=== PATIENT | female | born 1955 ===

== ENCOUNTER 2016-06-26 14:57 | Inpatient (IN) | payer MEDICAID ==
[~2016-06-26] VITALS: Ht 157.5 cm; Wt 78.5 kg
[2016-06-26] VITALS (8 sets, daily range): BP systolic 112–128; BP diastolic 55–84; PULSE 60–104; RESP 15–26; O2SAT 96–100
[~2016-06-26 14:57] MED LIST: ACET1TAB12 PO; CLAR10T PO; Carbidopa/Levodopa PO; FLE10 PO; METO25T PO; ZAN150T PO
--- NOTE | 2016-06-26 15:06 | ED.REPORT ---
HPI-General Illness Date of Service Jun 26, 2016 ED Provider: Ganesh Bradley DO The patient is a 60 year old female with history of hypertension and Parkinson' s on Carbidopa levodopa who was brought to the emergency department by EMS from her doctor's office for a fast heart rate. The patient has noticed increased shaking and arm soreness over the last two days. The pt has been taking three doses of Carbidopa levodopa per day, and notices that the shaking worsens directly before her next dose. Her last dose was at 14:00, and she took an aspirin at 14:15. The shaking has been accompanied by chest pressure and episodic shortness of breath with nausea that began at 10:30 today. She has no history of chest pain or cardiac disease. The pt was taking Metoprolol for her hypertension, but has been off of it for one year. Nursing Notes Stated Complaint: UNCONTROLLED SHAKING Nursing Notes Reviewed: Yes Allergies: Coded Allergies: No Known Allergies (Verified Allergy, Unknown, 06/26/16) Scheduled ([Carbidopa/Levodopa]) Unknown Dose PO TID Loratadine-Expunged Drug, Do Not Renew! (Loratadine-Expunged Drug, Do Not Renew! ) 10 Mg Tablet 10 MG PO DAILY Metoprolol Tart-Expunged Drug, Do Not Renew! (Metoprolol Tart-Expunged Drug, Do Not Renew!) 25 Mg Tablet 12.5 MG PO BID Ranitidine 150 MG Tablet (Zantac 150 MG Tablet) 150 Mg Tab 150 MG PO BID Scheduled PRN Acetaminophen/Cod-Expunged Drug, Do Not Renew (Tylenol w/Codeine #3-Expunged Drug, Do Not Re) 1 Each Tablet 0.5 TAB PO BID PRN PRN For Pain FOR PAIN Cyclobenzaprine-Expunged Drug, Do Not Renew! (Flexeril-Expunged Drug, Do Not Renew!) 10 Mg Tablet 10 MG PO HS PRN PRN For Spasm FOR MUSCLE SPASM General Time Seen by MD: 15:04 Chief Complaint Other (uncontrollable shaking) Hx Obtained From: Patient, EMS Arrived By: Ambulance Sudden in Onset?: No Onset Occurred: 2 days ago Symptom Duration: Since onset Recent Healthcare: No recent hospitalization Past Medical History Past Medical History 1. Hypertension. 2. 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 3. Gastroesophageal reflux. 4. Obesity. 5. Chronic shoulder pain, she is unsure of the diagnosis. 6. Hyperthyroidism 7. Resting tremor. She has been referred to neurology. I reviewed Dr. Zavaleta's notes from May 2013. Dr. Zavaleta considered Parkinson's and started her on a trial of carbidopa-levodopa. Past Surgical History Tubal in 1984. The patient reports what sounds to be right nephrectomy in 2004. Family History Noncontributory Smoking History Unknown if Ever Smoker Social History Other Social History: Good social support Ambulatory Status Independent Review of Systems Full Review of Systems Constitutional: Denies: Fever Respiratory: Reports: Shortness of breath Cardiovascular: Reports: Chest pain ("pressure") GI: Reports: Nausea, Denies: Abdominal pain Musculoskeletal: Reports: Extremity pain, Denies: Neck pain Skin: Denies Rash Neurologic: Reports: Shaking Complete sys rev & neg: except as marked. Physical Exam Vital Signs Vital Signs Date Time Temp Pulse Resp B/P Pulse Ox O2 Delivery O2 Flow Rate FiO2 06/26/16 17:10 85 26 121/55 100 Nasal Cannula 2 06/26/16 16:22 100 24 128/64 99 Room Air 06/26/16 15:04 36.5 104 15 125/84 97 Room Air Initial VS: Reviewed General/Constitutional: Awake, Alert Head / Eyes: Atraumatic, Normocephalic, PERRL, EOMI ENT: Atraumatic, Airway patent, Mucous membranes moist Neck: Atraumatic, Supple, Full range of motion Respiratory / Chest: Atraumatic, Breath sounds NL, Breath sounds = bilat, No respiratory distress Cardiovascular: Regular rhythm, Heart sounds NL Heart Rate / Rhythm: Positive: Tachycardia Abdomen: Atraumatic, Soft, Non-tender Back: Atraumatic, Full range of motion Upper Extremities Upper Extremity / MS: Atraumatic, Full range of motion Lower Extremity / Pelvis / MS: Atraumatic, Full range of motion Skin: Atraumatic, Color NL, No rash, Warm, Dry Neurologic: Oriented X3, Speech NL, No sensory deficits pill-rolling tremor of bilateral upper extremities Psychiatric: Affect NL, Mood NL Interpretation & Diagnostics Lab Results Interpretation Result Diagram: 06/26/16 1550 06/26/16 1550 Test 06/26/16 15:35 06/26/16 15:40 1/27/17 15:50 Hold Urine Received (Received) Urine Color Yellow (YELLOW) Urine Appearance Clear (CLEAR,HAZY) Urine pH 5.5 (5.0-8.0) Urine Specific Salome 1.010 (1.003-1.035) Urine Protein Negativemg/dL (NEG,TRACE) Urine Glucose (UA) Negativemg/dL (NEGATIVE) Urine Ketones Negativemg/dL (NEGATIVE) Urine Occult Blood Trace (NEGATIVE) Urine Nitrite Negative (NEGATIVE) Urine Bilirubin Negative (NEGATIVE) Urine Urobilinogen Normalmg/dL (NORMAL) Urine Leukocyte Esterase Negative (NEGATIVE) Urine RBC 0-2/hpf (0-2) Urine WBC 0-5/hpf (0-5) Urine Epithelial Cells Few/hpf (NONE-MOD) Urine Crystals None seen (NONE SEEN) Urine Bacteria Few/hpf (NONE-FEW) Urine Hyaline Casts None/lpf (NONE) Urine Granular Casts None seen (NONE SEEN) Urine Waxy Casts None seen (NONE SEEN) Urine Red Blood Cell Casts None seen (NONE SEEN) Urine White Blood Cell Casts None seen (NONE SEEN) Urine Mucus None seen (None Seen) Urine Trichomonas None seen (NONE SEEN) Urine Yeast None (NONE SEEN) Urinalysis Comment None Urine Culture Reflexed Not indicated White Blood Count 6.2th/mm3 (3.8-10.1) Red Blood Count 5.05mil/mm3 (3.90-5.20) Hemoglobin 14.1g/dL (12.0-15.6) Hematocrit 43.4% (35.0-46.0) Mean Corpuscular Volume 85.9fL (81-100) Mean Corpuscular Hemoglobin 27.9pg (27.0-35.0) Mean Corpuscular Hemoglobin Concent 32.5% (32.0-37.0) Red Cell Distribution Width 14.0% (12.3-15.4) Platelet Count 299bil/L (150-400) Neutrophils (%) (Auto) 56.6% (40-74) Lymphocytes (%) (Auto) 30.2% (14-46) Monocytes (%) (Auto) 7.6% (4-12) Eosinophils (%) (Auto) 4.7% (0-5) Basophils (%) (Auto) 0.6% (0-3) Prothrombin Time 9.9sec (8.1-12.5) Prothromb Time International Ratio 0.93ratio Activated Partial Thromboplast Time 23.4sec (22.8-33.0) Sodium Level 140mEq/L (134-144) Potassium Level 4.2mEq/L (3.5-5.2) Chloride Level 104mEq/L (97-108) Carbon Dioxide Level 19mmol/L (18-29) Blood Urea Nitrogen 14mg/dL (8-27) Creatinine 1.04mg/dL (0.57-1.00) Estimat Glomerular Filtration Rate 77mL/min (>59) Glucose Level 78mg/dL (60-99) Calcium Level 9.1mg/dL (8.5-10.1) Magnesium Level 2.2mg/dL (1.6-2.6) Total Bilirubin 0.4mg/dL (0.0-1.2) Aspartate Amino Transf (AST/SGOT) 25U/L (0-50) Alanine Aminotransferase (ALT/SGPT) 5U/L (0-32) Alkaline Phosphatase 82U/L (25-165) Total Creatine Kinase 54U/L (21-215) Creatine Kinase MB 1.0ng/mL (0.0-5.3) Creatine Kinase MB % 1.9% (0.0-5.0) Troponin T < 0.010ug/L (0.0-0.011) Total Protein 8.1g/dL (6.4-8.4) Albumin 4.2g/dL (3.4-5.0) Thyroid Stimulating Hormone (TSH) 0.141uIU/mL (0.450-4.500) Hold Falcon Top Tube Received (Received) ECG Interpretation ECG Interpretation: sinus tachycardia with a rate of [address] changes Time: 15:52 Interpreted by: ED physician ECG Interpretation: sinus tachycardia with a rate of 103 ventrical premature complex several montor strips that show monomorphic ventricular tachycardia Time: 16:01 Interpreted by: ED physician X-Ray Chest Interpretation Chest Xray Interpretation: IMPRESSION: No acute process. Dictated by: Collette Pantoja M.D. on 06/26/2016 at 17:13 Approved by: Collette Pantoja M.D. 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 Zavaleta presents with worsening tremor over the past couple of days. She is a difficult historian but on further questioning she notes chest pain/pressure that began around 10:30 this morning at rest and comes in episodes. While in the ER she had multiple recorded episodes of nonsustained monomorphic ventricular tachycardia with symptoms consistent with this diagnosis including nausea, chest pressure, and feeling very unwell which we witnessed. Initially we were concerned that the monitor was only picking up her tremor and that this was not true ventricular tachycardia. Her rate when this occurred was 240-250, and she had all symptoms consistent with this. Initial troponin negative. She was given Ativan in addition to an extra dose of levodopa/carbidopa which she took at 2:00 just prior to arrival here. Patient tells me that she was on metoprolol in the past but this was discontinued about 2 years ago. Cardiology was consulted and Dr. Huang recommended using metoprolol rather than amiodarone given the side effect profile. He also recommended an echocardiogram and a stress test tomorrow, and would be happy to see the patient After her dose of Lopressor her episodes of ventricular tachycardia subsided. Patient had no electrolyte abnormalities but remains hyperthyroid despite the methimazole. We will monitor her in the [facility] given the acuity of her diagnosis and the close monitoring that is required. This was discussed with the hospitalist. Source of Hx: Old records, EMS Time of Eval: 15:28 Re-Evaluation/Progress Note: Pt rechecked, who is stable. Physical exam is performed and additional history is obtained. Time of Eval: 15:46 Re-Evaluation/Progress Note: Pt rechecked, whose nuclear monitoring technician indicates possible ventricular tachycardia. She is informed of the need for EKG and additional testing. Time of Eval: 15:53 Re-Evaluation/Progress Note: Pt rechecked and informed of medication options. Time of Eval: 16:24 Re-Evaluation/Progress Note: Code blue called. Pt rechecked, who is in ventricular tachycardia. She feels nauseated, short of breath, and chest pressure during these episodes. The need for admission is discussed. The pt understands and agrees with the plan. All questions are addressed at this time. Time of Eval: 16:31 Re-Evaluation/Progress Note: Spoke with pt's family regarding pt's case. Family is updated on pt condition and plan. Consultation #1: Referral / Consult Name: Michael Santos MD Consulted With: Cardiology Call Returned at: 15:55 Video Tape Duplicator: Agrees with eval, Agrees with plan Note: Consulted with Dr. Santos, cardiology, regarding pt's case. Dr. Santos recommends 5 mg Lopressor. Consultation #2: Referral / Consult Name: Afshan Adamson MD Consulted With: Hospitalist Call Returned at: 17:04 Video Tape Duplicator: Agrees with eval, Agrees with plan, Accepts admit Note: Spoke with Dr. Adamson, hospitalist, regarding pt's case. Dr. Adamson agrees with the evaluation and agrees to admit the pt. Counseled Regarding: Diagnosis, Lab results, Need for admission Discharge & Departure Primary Impression: Ventricular tachycardia Additional Impressions: Hyperthyroidism Chest pain Chest pain type: unspecified Qualified Code: R07.9 - Chest pain, unspecified Tremor Disposition: ADMITTED TO HOSPITAL Discharge Condition All VS Reviewed: Yes Condition: Stable Referrals: Scott Kemp MD (PCP) Crit Care Except Billable Proc Time Spent: 30-74 minutes Services Performed: Patient management by me, Time spent at bedside, Reviewing test results, Reviewing imaging, Discussing patient care, Documentation in record, Time with fam/surrogate Critical Care Notes: Patient required my undivided attention to treat and evaluate her condition Scribe Attestation Portions of this note were transcribed by Chrissy Ang. Dr. Kirk Gibbons personally performed the history, physical exam and medical decision-making; I reviewed and confirmed the accuracy of the information in the transcribed note. Signed by: Hiro Pierce, 06/26/2016 and 15:06. Portions of this note were transcribed by Chidi Liu I, Dr. Andelin personally performed the history, physical exam and medical decision-making; I reviewed and confirmed the accuracy of the information in the transcribed note. Signed by: Hiro Calle, 06/26/16 and 17:22. copies to: Scott Kemp MD, Gary R DO Jun 26, 2016 15:06 Chrissy Ang Jun 26, 2016 15:11 CHIDI LIU Jun 26, 2016 15:39
[2016-06-26] MEDS ORDERED: LORazepam 1 mg Tablet PO ONE (15:15)
[2016-06-26] MEDS ORDERED: 0.9% Sodium Chloride 1,000 ML IV ONE ×2 (15:34→16:36)
[2016-06-26] MEDS ORDERED: Amiodarone 150 mg/100 mL D5W 150 MG in IV Premix 1 EACH IV ONE (15:55)
[2016-06-26] MEDS ORDERED: Nitroglycerin 2% 1 Gm Ointment TOPICAL SCH (15:55)
[2016-06-26 15:57] LABS: APPEARANCE,URINE CLEAR (CLEAR,HAZY); COLOR,URINE YELLOW (YELLOW); OCCULT BLOOD,URINE TRACE (NEGATIVE); PH,URINE 5.5 (5.0-8.0); UROBILINOGEN,URINE NORMAL (NORMAL)
[2016-06-26] MEDS ORDERED: MeTOProlol 1 mg/mL 5 mL Inj IVPUSH ONE (16:00)
[2016-06-26 16:04] LABS: BASOPHILS % (AUTO) 0.6 % (0-3); EOSINOPHILS % (AUTO) 4.7 % (0-5); MONOCYTES % (AUTO) 7.6 % (4-12); Mean Corpuscular Hemoglobin 27.9 pg (27.0-35.0); Mean Corpuscular Volume 85.9 fL (81-100); NEUTROPHILS % (AUTO) 56.6 % (40-74); Platelet Count 299 bil/L (150-400)
[2016-06-26 16:19] LABS: INR 0.93 ratio
[2016-06-26 16:34] LABS: TROPONIN T < 0.010 ug/L (0.0-0.011)
[2016-06-26 16:45] LABS: Creatine Kinase 54 U/L (21-215); Magnesium 2.2 mg/dL (1.6-2.6)
--- NOTE | 2016-06-26 16:49 | NUR ---
spiritual care: code response emotional support to pt's nephew michael in [place]. other family expected from [place].
--- NOTE | 2016-06-26 17:15 | DRSVH ---
PROCEDURE: X-RAY CHEST ONE VIEW, PORTABLE ([id number]) INDICATIONS: chest pressure TECHNIQUE: One view of the chest was acquired. COMPARISON: Merged With [facility], , CHEST 1VW (PORTABLE), 08/15/2013, 21:04. FINDINGS: Surgical changes and devices: None. Lungs and pleura: No pleural effusions or pneumothorax. Right apical scarring. Lungs are otherwise c lear. Mediastinum: No change in right hilar prominence. Mediastinal contours otherwise appear normal. Hea rt size is normal. Bones and chest wall: No suspicious bony lesions. Overlying soft tissues appear unremarkable. IMPRESSION: No acute process. Dictated by: Collette Pantoja M.D. on 06/26/2016 at 17:13 Approved by: Collette Pantoja M.D. on 06/26/2016 at 17:14
[2016-06-26] MEDS ORDERED: Alum-Mag Hydrox-Simeth 30 mL Suspension PO PRN (17:45)
[2016-06-26] MEDS ORDERED: Ondansetron 2 mg/mL 2 mL Inj IVPUSH PRN (17:45)
[2016-06-26] MEDS ORDERED: CHOL100043 PO (17:48)
[2016-06-26] MEDS ORDERED: TIZA2CAP9 PO (17:48)
[2016-06-26] MEDS ORDERED: MULT1CAP33 PO (17:48)
[2016-06-26] MEDS ORDERED: MAGN250T29 PO (17:48)
[2016-06-26] MEDS ORDERED: LORA10CA PO (17:51)
--- NOTE | 2016-06-26 17:51 | NUR ---
Admit nurse: Pt sent to ED from MD's office. Flu shot given in March 2016, med rec completed. No allergies.
[2016-06-26] MEDS: 0.9% Sodium Chloride 1,000 ML IV SCH (20:22)
[2016-06-26] MEDS ORDERED: Polyethylene Glycol (PEG) 17 Gm Powder PO PRN (20:25)
[2016-06-26] MEDS ORDERED: Atropine 1 mg/10 mL (Code) Syringe IVPUSH PRN (20:25)
[2016-06-26] MEDS ORDERED: Senna-Docusate 8.6-50 mg Tablet PO PRN (20:25)
--- NOTE | 2016-06-26 20:59 | PCM.HPMED ---
Subjective Date of Service Jun 26, 2016 Primary Provider: Admitting Physician: Afshan Adamson MD Primary Care Physician: Zachariah Anthony MD Attending Physician: Afshan Adamson MD Admit Status: From the Emergency Department Chief Complaint: Chest pressure (and noted to have runs of V tach in ED) History of Present Illness: Patient's main concern is actually her worsening tremor, Sinemet helps but the effect wears off and for an hour before her next dose she has severe tremors. This causes aching in her arms and shoulders. Her next appointment with her neurologist is July 16 so today she saw her primary care physician to see if they could prescribe something from the tremor. She says will barely noted that her heart rate was fast and irregular. Patient was not aware of this, she did not note any palpitations. However she did note onset of chest pressure this morning around 10:30 and she says it was worse while at the primary care clinic around 2 or 3 PM. This was not accompanied by shortness of breath, nausea, or diaphoresis. She says they gave her some aspirin. She took her usual Sinemet dose around 3:15. She was sent to the emergency department and did receive nitro paste which she says made her lightheaded. However it did seem to help her chest pressure and this chest discomfort has been relieved since her admission. ED physician reports that he noted frequent runs of ventricular tachycardia. She discussed this with Dr. Santos who recommended that the patient be tried on metoprolol before going to an amiodarone drip. He plans to consult and recommended an echocardiogram and a stress test. Since arriving on the floor she has not been noted to have any further episodes of ventricular tachycardia. Review of Systems: She recently got over a cold but then was around her nieces and is again noting some nasal congestion and chest congestion for which she has been taking DayQuil and NyQuil. She does get aching in her arms and shoulders when her tremor is worse. Other than this review of systems is unremarkable. Allergies Coded Allergies: No Known Allergies (Verified Allergy, Unknown, 06/26/16) Home Medications She had been on metoprolol in the past but was discontinued due to hypotension. 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 She is on Sinemet three times and day and also mentions Tizanidine but otherwise can't list her meds. PMH Hypertension Tuberculosis in 1970 treated with 12 months of medication GERD Obesity Chronic shoulder pain with past records mentioning impingement syndrome Parkinson's Surgical History Surgery for tubal in 1984 Right nephrectomy in 2004 Family History Father had an NE at age 42, mother has a pacemaker, sister has alcoholism and seizures Social History Hx Alcohol Use: No Hx Substance Use: No Smoking Status: Light Tobacco Smoker (one cig per week), Unknown if Ever Smoker Exam Vital Signs Vital Sign - Last Date Time Temp Pulse Resp B/P Pulse Ox O2 Delivery O2 Flow Rate FiO2 06/26/16 18:28 36.7 85 20 114/74 100 Nasal Cannula 2.00 Exam General: Alert and oriented, no acute distress H EENT: Unremarkable Neck: No JVD, carotids 2+ Heart: Regular Lungs: Clear anteriorly and laterally Abdomen: Soft, non-tender Extremities: No pedal edema. She has significant tremor of both hands Lab and Diagnostics Result Diagram: 06/26/16 1550 06/26/16 1550 Assessment & Plan #1 chest pressure and paroxysmal ventricular tachycardia At the recommendation of cardiology she has been started on metoprolol and has not had further episodes of ventricular tachycardia Continue to monitor on telemetry and do serial troponins Continue Nitropaste Per emergency physician cardiology is planning to consult #2 hyperthyroidism being managed by endocrinology, patient reports the grip boss discontinued her anti-thyroid medication 2 months ago, follow- up lab testing is planned but endocrinology follow-up may need to be done sooner #3 significant bilateral hand tremor presumed to be Parkinson's For now continue her same dose of Sinemet but she does have an appointment with neurology July 16 to see if her medication can be increased Resuscitation Status: DNR/DNI:Do Not Resuscitate/Intubate Afshan Adamson MD Jun 26, 2016 20:59
[2016-06-26] MEDS: Nitroglycerin 2% 1 Gm Ointment TOPICAL SCH (22:46)
--- NOTE | 2016-06-26 23:56 | NUR ---
VITALS Pt was admitted to [facility] from the ED with non sustained V-tach, trial of Metoprolol with tele monitoring. Pt denies chest pain at this time. Vitals stable HR 88, BP 112/58, SR per tele, no pain just slight discomfort in shoulder r/t tremors. Pt independent in room, RA with no SOB noted, no other issues noted at this time.
[2016-06-27] MEDS: Sodium Chloride LOK Flush 10 mL Syringe IVFLUSH SCH ×3 (00:30→16:08)
[2016-06-27 02:43] LABS: BASOPHILS % (AUTO) 0.8 % (0-3); EOSINOPHILS % (AUTO) 5.4 % (0-5); MONOCYTES % (AUTO) 7.4 % (4-12); Mean Corpuscular Hemoglobin 28.3 pg (27.0-35.0); Mean Corpuscular Volume 86.8 fL (81-100); NEUTROPHILS % (AUTO) 49.3 % (40-74); Platelet Count 258 bil/L (150-400)
[2016-06-27 03:03] VITALS: BP 102/49; PULSE 70; RESP 16; O2SAT 97
[2016-06-27] MEDS: Nitroglycerin 2% 1 Gm Ointment TOPICAL SCH ×3 (03:05→14:44)
[2016-06-27 03:18] LABS: Creatine Kinase 35 U/L (21-215)
[2016-06-27 08:15] VITALS: BP 109/51; PULSE 83; O2SAT 96
[2016-06-27] MEDS: 0.9% Sodium Chloride 1,000 ML IV SCH (08:52)
[2016-06-27 12:03] VITALS: BP 109/61; PULSE 83; RESP 20; O2SAT 97
--- NOTE | 2016-06-27 13:02 | CONS ---
[address] [address] CONSULTATION REPORT PATIENT: KINJAL TOBIAS : 1955 MR#: [id number] ADMIT: 06/26/2016 JOB ID: [id number] DATE OF SERVICE: 06/27/2016 CARDIOLOGY CONSULTATION: REASON FOR CONSULT: For the evaluation of possible ventricular tachycardia. CHIEF COMPLAINT: Chest pain and some palpitations. PRESENT HISTORY: This 60-year-old pleasant female who has a history of parkinsonism, essential hypertension, obesity, GERD, history of tuberculosis in 1970, as well as a splenic artery aneurysm about 2.[address] abdomen done in July 2013, got admitted because of above-mentioned chief complaint. According to the patient, her main symptoms are worsening tremors. Sinemet was helping. She has a neurology appointment on July 16. She almost ran out her medications. She went to see her primary care physician to get that prescription. She had yesterday about 10:30 chest discomfort which was retrosternal pressure type which was not very intense. No significant radiation or nausea, vomiting, sweating. It lasted about 15 minutes. Rarely she feels that her heart beats fast or irregular. She told her primary care physician about those symptoms. She was sent to the ED. In the emergency department, she was being monitored. During monitoring, the patient has wide QRS rhythm. ED physician thought that it was a ventricular tachycardia. Hence patient got admitted to the hospital. At present, she is lying on bed. She is not having any active chest pain or shortness of breath or PND, orthopnea, palpitation or dizziness or syncope, or claudication, pain or fever, cough, expectoration. When she gets more tremor, she gets aching in her arms and shoulder as well. No previous history of myocardial infarction. She had a pharmacological perfusion study in July 2013. At that time, she had a normal myocardial perfusion with preserved LV function. Denies any known history of rheumatic heart disease or congenital heart disease or myocardial infarction, significant arrhythmias or DVT or pulmonary embolism. PAST MEDICAL HISTORY: 1. History of parkinsonism. 2. Essential hypertension. 3. History of tuberculosis in 1970. 4. GERD. 5. Obesity. 6. Chronic shoulder pain with history of impingement syndrome. PAST SURGICAL HISTORY: 1. History of tubal . 2. Right nephrectomy in 2004 due to cancer. 3. The patient also has abdominal hernia. 4. Denies any chemoradiation at that time. FAMILY HISTORY: The patient's father had MA at age 42. Mother has a pacemaker. SOCIAL HISTORY: Denies any tobacco abuse, alcohol abuse. REVIEW OF SYSTEMS: Ten point review of systems were obtained. They are negative except as stated above. PHYSICAL EXAMINATION: Blood pressure 114/74, heart rate 85, respiratory rate 20, oxygen saturation 100% on 2 L. HEENT: No significant anemia, jaundice. Neck: No apparent JVP or carotid bruit. Chest: No obvious crepitation or rhonchi. CVS: S1, S2 normal. No S3, S4. No significant murmur. Abdomen: Obese. I do not appreciate any pulsatile mass or hepatosplenomegaly. Extremities: Mild pedal edema. Vascular: No evidence of critical limb ischemia. 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 The patient has both upper extremities tremor. LABORATORIES: Sodium 141, potassium 4.3, BUN 13, creatinine 0.89. Normal AST, ALT, bilirubin. Troponin normal. Serial CPK normal. Total cholesterol 154, triglycerides 105, LDL 80, HDL 53. TSH 0.141 with a low T4. WBC 6.7, hemoglobin 12.2, platelets 258. I reviewed her telemetry rhythm strips from the ED. It looks like there is artifact due to underlying tremor causing impression for ventricular arrhythmia, ventricular tachycardia. EKG today at 9:38 a.m. revealed sinus rhythm without any significant ST-T changes. Narrow QRS rhythm. No wide QRS rhythm. QTc 429 msec. However, in telemetry today at about 2:52 a.m., the patient has episode of narrow QRS tachycardia, rate about 150, appears to be SVT. No obvious ventricular tachycardia seen during telemetry monitoring. X-ray chest did not reveal any acute pathology. ASSESSMENT/PLAN: ED impression of ventricular tachycardia appears to be an artifact due to underlying tremor due to underlying parkinsonism. I am not convinced with ventricular tachycardia episode. It is all because of artifact. 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 She does not have any significant QTc prolongation. Her electrolytes within normal limits. She is not significantly anemic. 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 At present she is asymptomatic. Her chest pain has some anginal components. However, in July 2013, her perfusion scan was normal. As she does not have any ischemic changes, her troponin normal, serial CPK normal, at this point of time, will recommend echocardiogram to rule out structural heart disease as well as exercise stress test for CAD diagnosis and risk stratification. For underlying SVT and mesenteric artery aneurysm, beta lia is a reasonable choice. Continue antiplatelet therapy. I will also recommend for her to be seen by vascular surgeon regarding her mesenteric artery aneurysm. Discussed the plan with the patient. If her exercise stress test turns out to be normal without any significant structural heart disease in echocardiogram, then she can be discharged home. Thanks for the cardiology consult. Total time spent today is about 75 minutes.
--- NOTE | 2016-06-27 13:55 | DRSVH ---
[facility] [address] [place] [address] Echocardiogram Report Name: KINJAL TOBIAS EStudy Date : 06/27/2016 Height: 62 in Hospital [facility] Weight: 167 lb Gender: Female BSA: 1.8 m2 : 1955 Age: 60 yrs BP: 102/49 mmHg Reason For Study: Chest pain, Tachycardia Ordering Physician: Performed By: Lula Rowe Referring Physician: Yash Kemp Interpretation Summary The left ventricle is normal in size. The ejection fraction is estimated to be 60-65%. There has been no significant change in LV EF since the previous study. The right ventricle is normal in size and function. There is mild to moderate tricuspid regurgitation. Compared to the prior echo exam, there has been an increase in TR severity. The right ventricular systolic pressure is estimated at least 39 mmHg assuming a right atrial pressure of 8 mm Hg. Procedure: A two-dimensional transthoracic echocardiogram with color flow and Doppler was performed. The study quality was technically adequate. Comparison is made with the echocardiogram of 08/16/2013. The patient was in normal sinus rhythm during the exam. Left Ventricle: The left ventricle is normal in size. Left ventricular wall thickness is at the upper limits of normal. There is no thrombus. The ejection fraction is estimated to be 60-65%. There has been no significant change since the previous study. There are no focal wall motion abnormalities. The E/E' ratio is abnormal. Right Ventricle: The right ventricle is normal in size and function. Atria: The left atrium is mildly dilated. The left atrium has mildly decreased in size since the prior echo exam. Right atrial size is normal. The interatrial septum is intact with no evidence for an atrial septal defect. There is no Doppler evidence for an interatrial shunt. Mitral Valve: There is mild mitral annular calcification. There is trace mitral regurgitation. Aortic Valve: The aortic valve is normal in structure and function. There is no aortic valve stenosis. No aortic regurgitation is present. Tricuspid Valve: The tricuspid valve leaflets are thin and pliable. There is mild to moderate tricuspid regurgitation. The right ventricular systolic pressure is estimated at least 39 mmHg assuming a right atrial pressure of 8 mm Hg. Compared to the prior echo exam, there has been an increase in TR severity. Pulmonic Valve: The pulmonic valve is normal in structure and function. There is trace pulmonic regurgitation. Great Vessels: The aortic root is normal size. The ascending aorta could not be visualized. The aortic arch is at the upper limits of normal in size. The IVC is of normal diameter and collapses less than 50% with a sniff. This suggests a right atrial pressure of 8 mm Hg. Pericardium/ Pleura There is no pericardial effusion. MMode/2D Measurements & Calculations LVIDd: 4.4 cm LA dimension: 3.8 cm RA long axis LVOT diam: 2.0 cm LVIDs: 2.7 cm Ao root diam FS: 38.7 % LA A2 area: 19.3 cm RA area EPSS: 0.32 cm LA A4 area: 23.3 cm Aortic Jxn: 2.6 cm IVSd: 1.1 cm LA length (vol) : 14.3 cm Ao Arch Diam (Prox LVPWd: 0.98 cm RA vol Trans): 3.3 cm LA vol: 64.6 ml : 36.6 ml LA vol index RA : 20.7 mm2 IVC diam: 1.5 cm LV pandey. diameter/BSA LV sys. diameter/BSA RVD1 (basal) (cm/m^2): 2.5 (cm/m^2): 1.5 Doppler Measurements & Calculations Ao V2 max MV E max dickson MV E/A: 1.1 TR max dickson : 161.0 cm/sec : 106.1 cm/sec Med Peak E' Dickson : 277.5 cm/sec Ao max PG MV A max dickson TR max PG : 10.4 mmHg : 94.4 cm/sec E/E' med: 15.5 : 30.8 mmHg Ao mean PG MV P1/2t: 49.6 msec Lat Peak E' Dickson PA V2 max : 79.2 cm/sec LVOT Max Dickson E/E' lat: 10.5 PA mean PG : 92.0 cm/sec E/e' average: 13.0 Pulm A Revs Dur PA Accel Time ALVARO(I,D): 1.8 cm : 0.12 sec sev ratio MV A dur: 0.11 sec MV dec time MV P1/2t max dickson Ao V2 mean LV V1 max PG : 0.17 sec : 111.0 cm/sec MVA(P1/2t): 4.4 cm2 Ao V2 VTI: 35.1 cm LV V1 VTI ALVARO(V,D): 1.8 cm2 : 20.2 cm PA V2 mean ALVARO indexed to BSA Pulm A Revs Dur - MV : 51.6 cm/sec (cm^2/m^2): 1.0 A Dur: 0.01 msec Reading Physician:PM
--- NOTE | 2016-06-27 15:22 | NUR ---
Social Work: Screen D: Per EMR review, pt is a 60 year old female admitted for NON-Sustained V-Tach, Hyperthyroidism. Pt is [facility] medicaid. PCP Is Zachariah Anthony MD> NOK Is Cole Kelley, Brother. Raadmit score not entered at this time. Advanced directives offered to pt. Pt lives at home in [facility], [facility]. She is I at baseline. Per cardiology consult, pt is to have an echo and stress test. Pending results, pt may be able to discharge home later today. 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 CHARLENE Jimenes
--- NOTE | 2016-06-27 18:06 | NUR ---
POC/TELE The pt had an uneventful day. Cards is following, and does not believe the pt had Vtach, rather ectopy secondary to parkinson's tremors. The POC is to do a stress test tomorrow, then DC home.
[2016-06-27 20:00] VITALS: PULSE 90
[2016-06-27 20:22] VITALS: BP 123/70; PULSE 88; RESP 20; O2SAT 98
--- NOTE | 2016-06-27 20:28 | PCM.PNMED ---
Subjective Date of Service Jun 27, 2016 Subjective No complaints of chest pain, dyspnea, nausea vomiting Exam Vital Signs Vital Sign - Last Date Time Temp Pulse Resp B/P Pulse Ox O2 Delivery O2 Flow Rate FiO2 06/27/16 12:03 37.0 83 20 109/61 97 Room Air 06/26/16 18:28 2.00 Intake and Output 06/26/16 06/26/16 06/27/16 Cumulative From/Thru 15:00 23:00 07:00 06/26/16 15:04 - 06/27/16 06:40 Intake Total 1580 ml 1580 ml Output Total 975 ml 975 ml Balance 605 ml 605 ml Intake Oral 690 ml 690 ml IV Total 890 ml 890 ml Output Urine Total 975 ml 975 ml Exam Gen.- A+ O 3 no apparent distress. Obese female lying in bed Eyes- open conjunctiva clear, pupils equal nonicteric Mouth- oral mucosa moist, no exudate ENT- ears normal, nose normal Neck- supple/trach midline CVS- RRR no murmur or gallop Lungs CTA GI- NABS/NT soft Musc- moving 4 no obvious deformity Neuro- cranial nerves II through XII intact to gross examination, nonfocal Skin- warm and dry, no rashes/lesions/wounds noted Psych- pleasant and appropriate, Lab and Diagnostics LFTs WNL, LDL 80, HDL 53 DRG normal, TSH 0.141 06/26 Result Diagram: 06/27/1621906/27/16 022 X-Rays, CTs and MRIs CXR no acute process 06/26 12-lead ECG EKG personally/concurrently reviewed by Mirna normal sinus rhythm with a rate of 73, QTC 429 ms Cardiac Echo Impressions Echo 06/27 [place] Interpretation Summary The left ventricle is normal in size. The ejection fraction is estimated to be 60-65%. There has been no significant change in LV EF since the previous study. The right ventricle is normal in size and function. There is mild to moderate tricuspid regurgitation. Compared to the prior echo exam, there has been an increase in TR severity. The right ventricular systolic pressure is estimated at least 39 mmHg assuming a right atrial pressure of 8 mm Hg. Assessment & Plan 60-year-old female came in with chest pressure 06/26 Chest pain-normal cardiac enzyme normal EKG stress Myoview pending 06/28, discontinue Nitropaste Ventricular tachycardia-felt to be artifact from Parkinson's shake by head of transport logistics Dr. Santos hyperthyroidism being managed by endocrinology, patient reports the sales host discontinued her anti-thyroid medication 2 months ago, follow- up lab testing is planned but endocrinology follow-up may need to be done sooner. Check free T4 06/28 Parkinson's-tremor seems stable patient is started to take a fourth dose of Sinemet but is worried that it may be too much I will make 3 times a day for now and 8 one when necessary dose. Prophylaxis-none no DVT no GI patient very much at baseline Disposition-DO NOT RESUSCITATE from home Meeting medically complex patient first time she is getting a Myoview tomorrow and hopefully then we will discharge her. VTE Mechanical Devices: Intermittant Pneumatic CD Resuscitation Status: DNR/DNI:Do Not Resuscitate/Intubate Mohit Bradley MD Jun 27, 2016 20:27
[2016-06-27 22:57] VITALS: BP 99/61; PULSE 91; RESP 18; O2SAT 96
[2016-06-28] MEDS: Sodium Chloride LOK Flush 10 mL Syringe IVFLUSH SCH ×2 (00:16→08:14)
[2016-06-28 02:32] VITALS: BP 97/59; PULSE 83; RESP 18; O2SAT 96
[2016-06-28 03:26] LABS: TROPONIN T 0.01 ug/L (0.0-0.011)
--- NOTE | 2016-06-28 06:14 | NUR ---
Restful Night Pt seemed to sleep well between care interventions, clustering of care done. Pt denied any pain other than some soreness in arms from tremors. This was helped w/ Sinemet. Nitro paste DC'd per MD, pt NPO after midnight and caffeine free since start of shift. Tele SR 70s-80s
--- NOTE | 2016-06-28 07:42 | PCM.PNMED ---
Subjective Date of Service Jun 28, 2016 Exam Vital Signs Vital Sign - Last Date Time Temp Pulse Resp B/P Pulse Ox O2 Delivery O2 Flow Rate FiO2 06/28/16 02:32 37.2 83 18 97/59 96 Room Air 06/26/16 18:28 2.00 Intake and Output 06/27/16 06/27/16 06/28/16 Cumulative From/Thru 15:00 23:00 07:00 06/26/16 15:04 - 06/28/16 06:38 Intake Total 620 ml 2675 ml 4875 ml Output Total 825 ml 1950 ml 3750 ml Balance -205 ml 725 ml 1125 ml Intake Oral 620 ml 875 ml 2185 ml IV Total 1800 ml 2690 ml Output Urine Total 825 ml 1950 ml 3750 ml # Bowel Movements 0 0 Exam Gen.- A+ O 3 no apparent distress. Obese female lying in bed Eyes- open conjunctiva clear, pupils equal nonicteric Mouth- oral mucosa moist, no exudate ENT- ears normal, nose normal Neck- supple/trach midline CVS- RRR no murmur or gallop Lungs CTA GI- NABS/NT soft Musc- moving 4 no obvious deformity Neuro- cranial nerves II through XII intact to gross examination, nonfocal Skin- warm and dry, no rashes/lesions/wounds noted Psych- pleasant and appropriate, Lab and Diagnostics Result Diagram: 06/27/16 0220 06/27/16 0220 X-Rays, CTs and MRIs CXR no acute process 06/26 12-lead ECG EKG personally/concurrently reviewed by Mirna normal sinus rhythm with a rate of 73, QTC 429 ms Cardiac Echo Impressions Echo 06/27 [place] Interpretation Summary The left ventricle is normal in size. The ejection fraction is estimated to be 60-65%. There has been no significant change in LV EF since the previous study. The right ventricle is normal in size and function. There is mild to moderate tricuspid regurgitation. Compared to the prior echo exam, there has been an increase in TR severity. The right ventricular systolic pressure is estimated at least 39 mmHg assuming a right atrial pressure of 8 mm Hg. Assessment & Plan 60-year-old female came in with chest pressure 06/26 Chest pain-normal cardiac enzyme normal EKG stress Myoview pending 06/28, discontinue Nitropaste Ventricular tachycardia-felt to be artifact from Parkinson's shake by rip saw operator Dr. Santos hyperthyroidism being managed by endocrinology, patient reports the lighter captain discontinued her anti-thyroid medication 2 months ago, follow- up lab testing is planned but endocrinology follow-up may need to be done sooner. Check free T4 06/28 Parkinson's-tremor seems stable patient is started to take a fourth dose of Sinemet but is worried that it may be too much I will make 3 times a day for now and 8 one when necessary dose. Prophylaxis-none no DVT no GI patient very much at baseline Disposition-DO NOT RESUSCITATE from home Meeting medically complex patient first time she is getting a Myoview tomorrow and hopefully then we will discharge her. VTE Mechanical Devices: Intermittant Pneumatic CD Resuscitation Status: DNR/DNI:Do Not Resuscitate/Intubate Mohit Bradley MD Jun 28, 2016 07:42
[2016-06-28 08:12] VITALS: BP 108/70; PULSE 85; RESP 16; O2SAT 98
[2016-06-28] MEDS: 0.9% Sodium Chloride 1,000 ML IV SCH ×2 (08:14→09:52)
[2016-06-28] MEDS ORDERED: MeTOProlol XL 25 mg ER24 Tablet PO SCH ×2 (08:30→16:30)
[2016-06-28 09:58] VITALS: PULSE 99
--- NOTE | 2016-06-28 10:40 | PCM.DIMED ---
Discharge Instructions Date of Service Jun 28, 2016 Dates of Hospitalization Jun 26, 2016 at 17:38 Discharge Diagnosis Discharge Diagnosis Chest pain, noncardiac Ventricular tachycardia actually artifact Splenic artery aneurysm Uncontrolled parkinsonism Test Results EKG, and heart tests both normal Diet Heart Healthy Activity No restrictions Patient Instructions You need to see a vascular surgeon regarding your splenic artery aneurysm Follow-up with your neurologist as previously Call your primary care provider and follow up as needed or as previously scheduled Follow-up Provider: Zachariah Anthony MD Follow-up with PCP in: Other (call, you probably do not need an appointment) Attending's Statement Apparently patient ran out of Sinemet early because she was taking extra doses because her shake was returning so I am prescribing her some to get her through to her visit with her neurologist Dr. Longo on 07/16. Also giving her metoprolol succinate 25 mg daily. Should have referral for vascular surgery for further evaluation of splenic artery aneurysm. Mohit Bradley MD Jun 28, 2016 10:40
[2016-06-28] MEDS ORDERED: METO25TA99 PO (10:44)
[2016-06-28] MEDS ORDERED: CARB1TAB14 PO (10:44)
--- NOTE | 2016-06-28 10:53 | PCM.DC.MED ---
Discharge Summary Date of Service Jun 28, 2016 Dates of Hospitalization Date of Hospital Admission Jun 26, 2016 at 17:38 Date of Discharge: Jun 28, 2016 Providers: Admitting Physician: Afshan Adamson MD Primary Care Physician: Zachariah Anthony MD Attending Physician: Afshan Adamson MD Diagnosis at Time of Discharge Diagnosis at Time of Discharge Chest pain, noncardiac Ventricular tachycardia actually artifact Splenic artery aneurysm Uncontrolled parkinsonism Consultations Cardiology Dr. Santos Procedures XRay, CTs & MRIs CXR no acute process 06/26 ECG 12 Lead EKG personally/concurrently reviewed by Mirna normal sinus rhythm with a rate of 73, QTC 429 ms Cardiac Echo Impression Echo 06/27 Tom Interpretation Summary The left ventricle is normal in size. The ejection fraction is estimated to be 60-65%. There has been no significant change in LV EF since the previous study. The right ventricle is normal in size and function. There is mild to moderate tricuspid regurgitation. Compared to the prior echo exam, there has been an increase in TR severity. The right ventricular systolic pressure is estimated at least 39 mmHg assuming a right atrial pressure of 8 mm Hg. Brief History worsening tremor, question of ventricular tachycardia noted while patient was being evaluated so she was admitted Hospital Course 60-year-old female came in with chest pressure 06/26 because she ran out of Sinemet because she was having shakes and was thought to have been having episodes of ventricular tachycardia. Splenic artery aneurysm- 2.4 x 1.7 x 1.5 cm splenic artery aneurysm is present with dense rim calcification. Noted [place] [address] scan needs follow- up. Recommend referral to vascular surgeon and/or outpatient repeat CT. Chest pain-normal cardiac enzyme normal, EKG normal sinus, echocardiogram normal, stress Myoview normal. Patient cleared by cardiology for discharge Ventricular tachycardia-felt to be artifact from Parkinson's shake by abstract maker Dr. Santos. No further events noted hyperthyroidism being managed by endocrinology, patient reports the learning disabilities teacher discontinued her anti-thyroid medication 2 months ago, follow- up lab testing is planned but endocrinology follow-up may need to be done sooner. Check free T4 normal 06/28 Parkinson's-tremor seems stable patient is started to take a fourth dose of Sinemet has follow-up with Dr. Barrera her neurologist 07/16 prescription given Prophylaxis-none no DVT no GI patient very much at baseline Disposition-DO NOT RESUSCITATE from home Patient had no events in the hospital was worked up and no abnormalities found other than splenic abscess and she is being discharged in stable improved condition.. Exam Vital Signs (Last) Date Time Temp Pulse Resp B/P Pulse Ox O2 Delivery O2 Flow Rate FiO2 06/28/16 09:58 99 06/28/16 08:12 36.7 16 108/70 98 Room Air 06/26/16 18:28 2.00 Test 06/26/16 15:35 06/26/16 15:40 06/26/16 15:50 06/27/16 02:20 Hold Urine Received (Received) Urine Color Yellow (YELLOW) Urine Appearance Clear (CLEAR,HAZY) Urine pH 5.5 (5.0-8.0) Urine Specific [place] 1.010 (1.003-1.035) Urine Protein Negativemg/dL (NEG,TRACE) Urine Glucose (UA) Negativemg/dL (NEGATIVE) Urine Ketones Negativemg/dL (NEGATIVE) Urine Occult Blood Trace (NEGATIVE) Urine Nitrite Negative (NEGATIVE) Urine Bilirubin Negative (NEGATIVE) Urine Urobilinogen Normalmg/dL (NORMAL) Urine Leukocyte Esterase Negative (NEGATIVE) Urine RBC 0-2/hpf (0-2) Urine WBC 0-5/hpf (0-5) Urine Epithelial Cells Few/hpf (NONE-MOD) Urine Crystals None seen (NONE SEEN) Urine Bacteria Few/hpf (NONE-FEW) Urine Hyaline Casts None/lpf (NONE) Urine Granular Casts None seen (NONE SEEN) Urine Waxy Casts None seen (NONE SEEN) Urine Red Blood Cell Casts None seen (NONE SEEN) Urine White Blood Cell Casts None seen (NONE SEEN) Urine Mucus None seen (None Seen) Urine Trichomonas None seen (NONE SEEN) Urine Yeast None (NONE SEEN) Urinalysis Comment None Urine Culture Reflexed Not indicated Prothrombin Time 9.9sec (8.1-12.5) Prothromb Time International Ratio 0.93ratio Activated Partial Thromboplast Time 23.4sec (22.8-33.0) Magnesium Level 2.2mg/dL (1.6-2.6) Total Bilirubin 0.4mg/dL (0.0-1.2) Aspartate Amino Transf (AST/SGOT) 25U/L (0-50) Alanine Aminotransferase (ALT/SGPT) 5U/L (0-32) Alkaline Phosphatase 82U/L (25-165) Total Protein 8.1g/dL (6.4-8.4) Albumin 4.2g/dL (3.4-5.0) Thyroid Stimulating Hormone (TSH) 0.141uIU/mL (0.450-4.500) Hold Falcon Top Tube Received (Received) White Blood Count 6.7th/mm3 (3.8-10.1) Red Blood Count 4.31mil/mm3 (3.90-5.20) Hemoglobin 12.2g/dL (12.0-15.6) Hematocrit 37.4% (35.0-46.0) Mean Corpuscular Volume 86.8fL (81-100) Mean Corpuscular Hemoglobin 28.3pg (27.0-35.0) Mean Corpuscular Hemoglobin Concent 32.6% (32.0-37.0) Red Cell Distribution Width 13.8% (12.3-15.4) Platelet Count 258bil/L (150-400) Neutrophils (%) (Auto) 49.3% (40-74) Lymphocytes (%) (Auto) 36.8% (14-46) Monocytes (%) (Auto) 7.4% (4-12) Eosinophils (%) (Auto) 5.4% (0-5) Basophils (%) (Auto) 0.8% (0-3) Sodium Level 141mEq/L (134-144) Potassium Level 4.3mEq/L (3.5-5.2) Chloride Level 109mEq/L (97-108) Carbon Dioxide Level 20mmol/L (18-29) Blood Urea Nitrogen 13mg/dL (8-27) Creatinine 0.89mg/dL (0.57-1.00) Estimat Glomerular Filtration Rate 93mL/min (>59) Glucose Level 94mg/dL (60-99) Calcium Level 8.6mg/dL (8.5-10.1) Total Creatine Kinase 35U/L (21-215) Creatine Kinase MB < 1.0ng/mL (0.0-5.3) Creatine Kinase MB % % (0.0-5.0) Triglycerides Level 105mg/dL (0-149) Cholesterol Level 154mg/dL (100-199) LDL Cholesterol, Calculated 80.000mg/dL (0-99) VLDL Cholesterol 21.000mg/dL HDL Cholesterol 53mg/dL (>39) Cholesterol/HDL Ratio 2.91 (0.0-4.4) Test 06/28/16 02:30 Troponin T 0.010ug/L (0.0-0.011) Free Thyroxine 1.10ng/dL (0.82-1.77) Discharge Medications Discharge Medications ([Carbidopa/Levodopa]) 25-100 MG PO TID (Reported) Carbidopa/Levodopa 25-100 mg (Carbidopa/Levodopa 25-100 mg) 1 Each Tablet 1 TABLET PO TID Prescribed by: DEV LANDERS MD Cholecalciferol (Vitamin D3) (Vitamin D) 1,000 Unit Tablet 1,000 UNIT PO DAILY ( Reported) Loratadine (Claritin) 10 Mg Capsule 10 MG PO DAILY (Reported) Magnesium Oxide (Magnesium) 250 Mg Tablet 250 MG PO DAILY (Reported) Metoprolol Succinate ER (Metoprolol Succinate ER) 25 Mg Tab.er.24h 25 MG PO DAILY Prescribed by: DEV LANDERS MD Multivitamin (Multivitamins) 1 Each Capsule 1 EACH PO DAILY (Reported) Ranitidine 150 MG Tablet (Zantac 150 MG Tablet) 150 Mg Tab 150 MG PO BID ( Reported) Tizanidine (Tizanidine) 2 Mg Capsule 2 MG PO HS (Reported) Followup Plan Disposition: To home Follow-up plan Call PCP, patient already has appointment with neurologist July 16, one could consider repeating the CT scan of the abdomen and pelvis to evaluate the splenic artery with contrast before referring to vascular surgery or simply referring to vascular surgery. We will leave the choice to primary care provider. Cardiology does not see a need for cardiology follow-up. Discharge Diet: Heart Healthy Discharge Activity: No restrictions Patient Instructions You need to see a vascular surgeon regarding your splenic artery aneurysm Follow-up with your neurologist as previously Call your primary care provider and follow up as needed or as previously scheduled Follow-up Provider: Zachariah Anthony MD Follow-up with PCP in: Other (call, you probably do not need an appointment) Time spent Greater than 30 minutes Attending Statement Patient clinically stable, cardiac workup unrevealing, only concern is that of splenic artery aneurysm that has not been reevaluated since 2013 which is not small in size. Would benefit from repeat scan and or referral to vascular surgery. copies to: Zachariah Anthony MD, Andris E MD Jun 28, 2016 10:53
[2016-06-28 12:41] VITALS: BP 120/73; PULSE 97; RESP 20; O2SAT 98
--- NOTE | 2016-06-28 13:24 | NUR ---
Discharge Patient ambulated off unit with RN and family in a stable condition. Both IVs D/C'd intact, tele removed, all personal belongings with patient. All continued medications discussed, new medications listed were carbidopa/levidopa and metoprolol, however patient states she already is taking both of those medications -- next due doses discussed, patient had no further questions. No follow up appointment scheduled, encouraged patient to call PCP tomorrow 06/29 for possible follow up.
--- NOTE | 2016-06-28 14:54 | PROG NOTE ---
[address] [address] PROGRESS NOTE PATIENT: KINJAL TOBIAS : 1955 MR#: [id number] ADMIT: 06/26/2016 JOB ID: [id number] DATE: 06/28/2016 SUBJECTIVE: Patient came after stress test. No active chest pain. No shortness of breath or worsening palpitation or new cardiovascular symptoms. OBJECTIVE: Blood pressure 108/70, heart rate 85, respiratory rate 16, oxygen saturation 98%. Neck: No apparent JVP. Chest: No obvious crepitation, rhonchi. CVS: S1, S2 normal. No S3, no S4. Abdomen: Obese. CHINESE INSTRUCTOR: The patient has parkinsonism features. Vascular: No evidence of critical limb ischemia. Had echocardiogram yesterday which revealed normal left ventricular and right ventricular function with LV ejection fraction 60% to 65%, mild to moderate TR. Exercise stress test did not reveal any obvious ischemia feature. No significant sustained arrhythmias. Achieved 81% of target heart rate. LABORATORY: Sodium 141, potassium 4.3, free T4 normal. Hemoglobin 12.2, platelets 258. ASSESSMENT AND PLAN: Concern for ventricular tachycardia. However, it appears to be artifact due to underlying tremors due to parkinsonism. Past has short-lived episode of SVT on telemetry. Consider continuation of metoprolol. Episode of chest pain with some anginal component. In the hospital, patient ruled out for acute myocardial infarction. On 2D echo preserved LV without any significant structural heart disease. Exercise stress test did not reveal any convincing ischemia. She had a perfusion study in July 2013. At that time also she had a normal myocardial perfusion. She had CT abdomen in July 2013. At that time patient has splenic artery aneurysm. At present, she is asymptomatic. From Cardiology perspective will recommend medical management and risk factor modification. Patient to see vascular surgeon for evaluation of splenic artery aneurysm. Discussed the plan with the patient and hospitalist team. The size of splenic artery aneurysm maximum diameter was about 2.4 cm, based on CT abdomen in July 2013. At this point of time cardiology service will sign off. Total time spent about 35 minutes.
== END 2016-06-28 13:18 | disposition home or self-care (01) | DRG 42 ==
LOC: EDBD 14:57 → EDUNIT# 14:57 → SED 14:57 → PCC 17:38
PROVIDERS: ADMIT Internal Medicine; ATTEND Internal Medicine
DX: G20 Parkinson's disease (principal); I72.8 Aneurysm of other specified arteries; Z66 Do not resuscitate

== ENCOUNTER 2017-01-29 04:16 | Inpatient (IN) | payer MEDICAID ==
[2017-01-29] VITALS (12 sets, daily range): BP systolic 73–120; BP diastolic 41–68; PULSE 69–137; RESP 18–30; O2SAT 95–99
[~2017-01-29] VITALS: Ht 157.5 cm; Wt 71.0 kg
[~2017-01-29 04:16] MED LIST changes: -ACET1TAB12 PO; +CARB1TAB14 PO; +CHOL100043 PO; -CLAR10T PO; -FLE10 PO; +LORA10CA PO; +MAGN250T29 PO; +METO-386 PO; -METO25T PO; +MULT1CAP33 PO; +TIZA2CAP9 PO
--- NOTE | 2017-01-29 04:21 | ED.REPORT ---
HPI-General Illness Date of Service Jan 29, 2017 ED Provider: Santos Golden MD A 61 year old female with a history of hypertension and resting tremor followed up by neurology is brought to the ED via EMS due to weakness. The pt was experiencing increased shaking this morning, severe enough to wake her , in addition to generalized weakness, fever, inability to speak normally and cramping pain, though she denies headache. The pt reports that she just restarted her Metoprolol. Per pt's , the pt has been taking Carbidopa- Levodopa for some time, and had a decreased appetite yesterday. He was not aware of any cough or vomiting or other suggestive symptoms. He notes a male relative as a febrile illness after exposure to a "virus", and the patient was in the same area exposed to dust in the same area. Nursing Notes Stated Complaint: GENERALIZED WEAKNESS Chief Complaint: Neuro Symptoms/ Deficits Nursing Notes Reviewed: Yes Allergies: Coded Allergies: No Known Allergies (Verified Allergy, Unknown, 01/29/17) Scheduled ([Carbidopa/Levodopa]) 25-100 MG PO TID Albuterol HFA (Proair HFA) 8.5 Gm Hfa.aer.ad 2 PUFFS INHALATION Q4H Carbidopa/Levodopa 25-100 mg (Carbidopa/Levodopa 25-100 mg) 1 Each Tablet 1 TABLET PO TID Cholecalciferol (Vitamin D3) (Vitamin D) 1,000 Unit Tablet 1,000 UNIT PO DAILY Loratadine (Claritin) 10 Mg Capsule 10 MG PO DAILY Magnesium Oxide (Magnesium) 250 Mg Tablet 250 MG PO DAILY Metoprolol Succinate ER (Metoprolol Succinate ER) 25 Mg Tab.er.24h 25 MG PO DAILY Multivitamin (Multivitamins) 1 Each Capsule 1 EACH PO DAILY Ranitidine 150 MG Tablet (Zantac 150 MG Tablet) 150 Mg Tab 150 MG PO BID Miscellaneous Medications Cetirizine HCl (All Day Allergy) 10 Mg Tab.chew 10 MG PO Fluticasone Propionate (Allergy Relief) 50 Mcg/Actuation Jolon.susp 15.8 ML NS Tizanidine (Tizanidine) 4 Mg Capsule 4 MG PO General Time Seen by MD: 04:20 Chief Complaint Weakness Hx Obtained From: Patient, EMS Arrived By: Ambulance Sudden in Onset?: No Onset Occurred: 1 - 4 hours ago Symptom Duration: Since onset Recent Healthcare: Recent doctor visit, Recent hospitalization Similar Sx Previous: No Past Medical History Past Medical History 1. Hypertension. 2. 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 3. Gastroesophageal reflux. 4. Obesity. 5. Chronic shoulder pain, she is unsure of the diagnosis. 6. Hyperthyroidism 7. Resting tremor. She has been referred to neurology. I reviewed Dr. Zavaleta's notes from May 2013. Dr. Zavaleta considered Parkinson's and started her on a trial of carbidopa-levodopa. Past Surgical History Tubal in 1984. The patient reports what sounds to be right nephrectomy in 2004. Family History Noncontributory Smoking History Light Tobacco Smoker, Unknown if Ever Smoker Social History Other Social History: Good social support Ambulatory Status Independent Review of Systems "cramping pain" decreased appetite inability to speak normally Full Review of Systems Constitutional: Reports: Fever, Weakness - generalized Respiratory: Denies: Non-productive cough, Shortness of breath Cardiovascular: Denies: Chest pain GI: Denies: Abdominal pain, Vomiting Musculoskeletal: Denies: Extremity pain, Neck pain Neurologic: Reports: Shaking, Denies: Headache Complete sys rev & neg: except as marked. Physical Exam Vital Signs Vital Signs Date Time Temp Pulse Resp B/P Pulse Ox O2 Delivery O2 Flow Rate FiO2 01/29/17 04:19 36.4 124 20 104/68 96 Room Air Initial VS: Reviewed General/Constitutional: Awake, Alert verbal but slow to respond Head / Eyes: Atraumatic, Normocephalic, PERRL, EOMI ENT: Atraumatic, Airway patent, Mucous membranes moist Neck: Atraumatic, Supple, Full range of motion Respiratory / Chest: Atraumatic, Breath sounds NL, Breath sounds = bilat, No respiratory distress Cardiovascular: Heart rate NL, Regular rhythm, Heart sounds NL Abdomen: Atraumatic, Soft, Non-tender Back: Atraumatic, Full range of motion Upper Extremities Upper Extremity / MS: Atraumatic, Full range of motion Lower Extremity / Pelvis / MS: Atraumatic, Full range of motion Skin: Atraumatic, Color NL, No rash, Warm, Dry Neurologic: Oriented X3, No sensory deficits Parkinsonian tremors moving face symmetrically shaking symmetrically Psychiatric: Affect NL, Mood NL Interpretation & Diagnostics Lab Results Interpretation Result Diagram: 01/29/1744701/29/17447 Test 01/29/17 04:48 01/29/17 05:06 White Blood Count 15.2th/mm3 (3.8-10.1) Red Blood Count 5.51mil/mm3 (3.90-5.20) Hemoglobin 15.4g/dL (12.0-15.6) Hematocrit 45.8% (35.0-46.0) Mean Corpuscular Volume 83.1fL (81-100) Mean Corpuscular Hemoglobin 27.9pg (27.0-35.0) Mean Corpuscular Hemoglobin Concent 33.6% (32.0-37.0) Red Cell Distribution Width 14.4% (12.3-15.4) Platelet Count 316bil/L (150-400) Neutrophils (%) (Auto) 89.4% (40-74) Lymphocytes (%) (Auto) 5.4% (14-46) Monocytes (%) (Auto) 4.5% (4-12) Eosinophils (%) (Auto) 0.1% (0-5) Basophils (%) (Auto) 0.1% (0-3) Prothrombin Time 10.9sec (8.1-12.5) Prothromb Time International Ratio 1.02ratio Activated Partial Thromboplast Time 22.5sec (22.8-33.0) Sodium Level 147mEq/L (134-144) Potassium Level 5.1mEq/L (3.5-5.2) Chloride Level 105mEq/L (97-108) Carbon Dioxide Level 16mmol/L (18-29) Blood Urea Nitrogen 34mg/dL (8-27) Creatinine 2.63mg/dL (0.57-1.00) Estimat Glomerular Filtration Rate 26mL/min (>59) Glucose Level 119mg/dL (60-99) Calcium Level 10.2mg/dL (8.5-10.1) Magnesium Level 2.3mg/dL (1.6-2.6) Total Bilirubin 1.3mg/dL (0.0-1.2) Aspartate Amino Transf (AST/SGOT) 95U/L (0-50) Alanine Aminotransferase (ALT/SGPT) 62U/L (0-32) Alkaline Phosphatase 97U/L (25-165) Troponin T 0.010ug/L (0.0-0.011) Pro-B-Type Natriuretic Peptide 1847pg/mL (0-287) Total Protein 9.4g/dL (6.4-8.4) Albumin 4.1g/dL (3.4-5.0) Procalcitonin 0.54ng/mL (0.00-0.08) Hold Falcon Top Tube Received (Received) Urine Color Dark yellow (YELLOW) Urine Appearance Clear (CLEAR,HAZY) Urine pH 5.5 (5.0-8.0) Urine Specific [place] 1.025 (1.003-1.035) Urine Protein Tracemg/dL (NEG,TRACE) Urine Glucose (UA) Negativemg/dL (NEGATIVE) Urine Ketones Negativemg/dL (NEGATIVE) Urine Occult Blood Negative (NEGATIVE) Urine Nitrite Negative (NEGATIVE) Urine Bilirubin Negative (NEGATIVE) Urine Urobilinogen 4.0mg/dL (NORMAL) Urine Leukocyte Esterase Negative (NEGATIVE) Urine RBC 0-2/hpf (0-2) Urine WBC 6-10/hpf (0-5) Urine Epithelial Cells Few/hpf (NONE-MOD) Urine Crystals None seen (NONE SEEN) Urine Bacteria Moderate/hpf (NONE-FEW) Urine Hyaline Casts 5/20/lpf (NONE) Urine Granular Casts None seen (NONE SEEN) Urine Waxy Casts None seen (NONE SEEN) Urine Red Blood Cell Casts None seen (NONE SEEN) Urine White Blood Cell Casts None seen (NONE SEEN) Urine Mucus Present (None Seen) Urine Trichomonas None seen (NONE SEEN) Urine Yeast None (NONE SEEN) Urinalysis Comment None Urine Culture Reflexed Indicated ECG Interpretation ECG Interpretation: sinus tachycardia with a rate of 132 normal axis prolonged QT interval movement artifact Time: 04:33 Interpreted by: ED physician X-Ray Chest Interpretation Chest Xray Interpretation: chronically enlarged right hilum left-sided infiltrates Interpretation / Wet Read by: Wet read ED physician Re-Eval/Medical Decision Med Decision/Clinical Course 61-year-old female with severe parkinsonism presents febrile shaking worse than typical with some decrease in her ability to speak. She is able to speak but seems to be confined to answering simple questions, although she does so coherently and consistently. Neurologically she appears intact apart from her grossly parkinsonian tremor. She is febrile and flushed and has a white count of 15,000. Her x-ray has a previously seen right hilar enlargement with some infiltration in the left upper lobe. Both of her apices are scarred on this finding is chronic. Urinalysis shows 6-10 white cells per rightward field on a cath specimen. She has a presumptive UTI at least. I suspect there may be some pneumonia involved as well. The gun with Rocephin and azithromycin and admitted to the medicine service. Given carbidopa levodopa here. Source of Hx: Old records Time of Eval: 05:12 Re-Evaluation/Progress Note: Pt rechecked with present. The diagnosis and plan for admission are discussed. The pt understands and agrees with the plan. All questions are addressed at this time. Consultation : Referral / Consult Name: Jaiden Cuenca MD Consulted With: Hospitalist Call Returned at: 05:57 Medical Care Evaluation Specialist: Agrees with eval, Agrees with plan, Accepts admit Note: Spoke with Dr. Cuenca, hospitalist, regarding pt's case. Dr. Cuenca agrees with the evaluation and agrees to admit the pt. Counseled Regarding: Diagnosis, Lab results, Need for admission Discharge & Departure Primary Impression: Community acquired pneumonia Additional Impressions: UTI (urinary tract infection) Urinary tract infection type: site unspecified Hematuria presence: without hematuria Qualified Code: N39.0 - Urinary tract infection, site not specified Parkinson's disease Disposition: ADMITTED TO HOSPITAL Discharge Condition All VS Reviewed: Yes Condition: Stable Referrals: Zachariah Anthony MD (PCP) Scribe Attestation Portions of this note were transcribed by Chidi Liu. I, Dr. Golden personally performed the history, physical exam and medical decision-making; I reviewed and confirmed the accuracy of the information in the transcribed note. copies to: Zachariah Anthony MD, Christopher W MD Jan 29, 2017 04:21 CHIDI LIU Jan 29, 2017 05:02
[2017-01-29 04:56] LABS: BASOPHILS % (AUTO) 0.1 % (0-3); EOSINOPHILS % (AUTO) 0.1 % (0-5); MONOCYTES % (AUTO) 4.5 % (4-12); Mean Corpuscular Hemoglobin 27.9 pg (27.0-35.0); Mean Corpuscular Volume 83.1 fL (81-100); NEUTROPHILS % (AUTO) 89.4 % (40-74); Platelet Count 316 bil/L (150-400)
[2017-01-29 05:20] LABS: INR 1.02 ratio
[2017-01-29 05:25] LABS: APPEARANCE,URINE CLEAR (CLEAR,HAZY); COLOR,URINE DARK YELLOW (YELLOW); OCCULT BLOOD,URINE NEGATIVE (NEGATIVE); PH,URINE 5.5 (5.0-8.0)
[2017-01-29 05:32] LABS: TROPONIN T 0.01 ug/L (0.0-0.011)
[2017-01-29 05:44] LABS: Magnesium 2.3 mg/dL (1.6-2.6)
[2017-01-29] MEDS ORDERED: cefTRIAXone Inj 2,000 MG in Dextrose 5% Minibag Plus 50 ML IV ONE (05:55)
[2017-01-29] MEDS ORDERED: 0.9% Sodium Chloride 1,000 ML IV ONE (05:55)
[2017-01-29] MEDS ORDERED: Azithromycin Inj 500 MG in Dextrose 5% w/Vial Mate 250 ML IV ONE (05:55)
[2017-01-29] MEDS ORDERED: ALBU8.5H2 INHALATION (06:23)
[2017-01-29] MEDS ORDERED: TIZA4CAP8 PO (06:23)
[2017-01-29] MEDS ORDERED: CETI10TA27 PO (06:23)
[2017-01-29] MEDS ORDERED: FLUT15.812 NS (06:23)
[2017-01-29] MEDS ORDERED: Ondansetron 2 mg/mL 2 mL Inj IVPUSH PRN (06:55)
[2017-01-29] MEDS ORDERED: Alum-Mag Hydrox-Simeth 30 mL Suspension PO PRN ×2 (06:55→09:05)
[2017-01-29] MEDS ORDERED: Lactated Ringer's 1,000 ML IV SCH ×2 (07:45→18:55)
[2017-01-29] MEDS ORDERED: Piperacillin-Tazo 3.375 Gm Inj 3.375 GM in Dextrose 5% Minibag Plus 50 ML IV ONE (08:50)
--- NOTE | 2017-01-29 08:51 | DRSVH ---
PROCEDURE: X-RAY CHEST ONE VIEW, PORTABLE ([id number]) INDICATIONS: WEAK TECHNIQUE: One view of the chest was acquired. COMPARISON: [facility], CT, CHEST/ABD/PELVIS W/CON (PNL), 08/16/2013, 9:38. [facility], CR, CHEST 1VW (PORTABLE), 08/15/2013, 21:04. [facility], CR, XR CHEST 1VW (PO RTABLE), 06/26/2016, 16:43. FINDINGS: Surgical changes and devices: None. Lungs and pleura: No pleural effusions or pneumothorax. Lung volumes are increased. Interstitium i s prominent and upper lobe scarring is unchanged from prior examinations. Mediastinum: Mediastinal contours appear normal. Heart size is normal. Bones and chest wall: No suspicious bony lesions. Overlying soft tissues appear unremarkable. IMPRESSION: Prominent interstitium and upper lobe scarring unchanged from the prior examination. Mil d early developing pulmonary edema cannot be excluded and clinical correlation recommended. Dictated by: Suhas MCKOY Interpreted: Deysi Martin MD on 01/29/2017 at 8:36 Approved by: Deysi Martin M.D. on 01/29/2017 at 8:49
[2017-01-29] MEDS ORDERED: Lactated Ringer's 500 ML IV ONE ×2 (08:55→16:10)
[2017-01-29] MEDS: Albuterol 2.5 mg/3 mL Inhalation Solution NEB SCH ×4 (09:02→21:02)
[2017-01-29] MEDS ORDERED: Polyethylene Glycol (PEG) 17 Gm Powder PO PRN (09:05)
[2017-01-29] MEDS ORDERED: 0.9% Sodium Chloride 250 ML ONE (10:28)
[2017-01-29] MEDS ORDERED: Albuterol-Ipratropium 3 mL Inhalation Solution NEB PRN (12:05)
[2017-01-29 13:06] LABS: BASOPHILS % (AUTO) 0.2 % (0-3); EOSINOPHILS % (AUTO) 0 % (0-5); Mean Corpuscular Hemoglobin 27.8 pg (27.0-35.0); Mean Corpuscular Volume 85.2 fL (81-100); NEUTROPHILS % (AUTO) 83.2 % (40-74); Platelet Count 198 bil/L (150-400)
--- NOTE | 2017-01-29 13:32 | PCM.HPMED ---
Subjective Date of Service Jan 29, 2017 Primary Provider: Admitting Physician: Jaiden Cuenca MD Primary Care Physician: Zachariah Anthony MD Attending Physician: Jaiden Cuenca MD Admit Status: From the Emergency Department, Admit to Red Team Chief Complaint: weakness History of Present Illness: 61 yo pleasant Female h/o of HTN, Hyperthyroidism, hx of Splenic artery aneurysm , Parkinson's with resting tremor on Sinemet, Tb that was treated in 1970, GERD , Obesity, hx of R Nephrectomy presenting to ED for weakness and increased shaking morning of admission that woke her up. Pt is poor historian, history from family and ED note below. The pt was experiencing increased shaking this morning, severe enough to wake her , in addition to generalized weakness, fever, inability to speak normally and cramping pain, though she denies headache. The pt reports that she just restarted her Metoprolol. Per pt's , the pt has been taking Carbidopa-Levodopa for some time, and had a decreased appetite yesterday. He was not aware of any cough or vomiting or other suggestive symptoms. He notes a male relative as a febrile illness after exposure to a "virus", and the patient was in the same area exposed to dust in the same area. In ED pt received single dose of Carbidopa-Levodopa. Abx- given Ceftriaxone and Azithromycin. UA- suggestive of UTI. Review of Systems: 12 point review of symptoms negative except for that in history of present illness Allergies Coded Allergies: No Known Allergies (Verified Allergy, Unknown, 01/29/17) Home Medications ([Carbidopa/Levodopa]) 25-100 MG PO TID Albuterol HFA (Proair HFA) 8.5 Gm Hfa.aer.ad 2 PUFFS INHALATION Q4H Carbidopa/Levodopa 25-100 mg (Carbidopa/Levodopa 25-100 mg) 1 Each Tablet 1 TABLET PO TID Cholecalciferol (Vitamin D3) (Vitamin D) 1,000 Unit Tablet 1,000 UNIT PO DAILY Loratadine (Claritin) 10 Mg Capsule 10 MG PO DAILY Magnesium Oxide (Magnesium) 250 Mg Tablet 250 MG PO DAILY Metoprolol Succinate ER (Metoprolol Succinate ER) 25 Mg Tab.er.24h 25 MG PO DAILY Multivitamin (Multivitamins) 1 Each Capsule 1 EACH PO DAILY Ranitidine 150 MG Tablet (Zantac 150 MG Tablet) 150 Mg Tab 150 MG PO BID Miscellaneous Medications Cetirizine HCl (All Day Allergy) 10 Mg Tab.chew 10 MG PO Fluticasone Propionate (Allergy Relief) 50 Mcg/Actuation [place].susp 15.8 ML NS Tizanidine (Tizanidine) 4 Mg Capsule 4 MG PO PMH Hypertension Tuberculosis in 1970 treated with 12 months of medication GERD Obesity Chronic shoulder pain with past records mentioning impingement syndrome Parkinson's Hyperthyroidism, hx of Splenic artery aneurysm Surgical History Surgery for tubal in 1984 Right nephrectomy in 2004 Family History Father had an MN at age 42, mother has a pacemaker, sister has alcoholism and seizures Social History Hx Alcohol Use: No Hx Substance Use: No Smoking Status: Light Tobacco Smoker, Unknown if Ever Smoker Exam Vital Signs Vital Sign - Last Date Time Temp Pulse Resp B/P Pulse Ox O2 Delivery O2 Flow Rate FiO2 01/29/17 11:11 36.9 69 20 120/47 99 Room Air Exam Gen: NAD, Awake and alert, not answering questions. +tremor b/l UE. HEENT: NCAT, PERRLA, EOMI, MMM, sclera anicteric. Neck: Soft, supple, no thyromegaly/JVD/LAD. Resp: CTAB, no R/R/W. CV: S1 S2, RRR, No M/R/G Abd: Soft, (+) BS, NT/ND, no guarding/rebound/organomegaly. Ext: +PP, No edema. Skin: warm/dry/intact Neuro/Psych: Mostly Non-verbal. +significant tremor of both hands Lab and Diagnostics Result Diagram: 01/29/17 1301 01/29/17 0448 Microbiology 01/29/17- CXR- Prominent interstitium and upper lobe scarring unchanged from the prior examination. Mild early developing pulmonary edema cannot be excluded and clinical correlation recommended. Assessment & Plan 61 yo pleasant Female h/o of HTN, Hyperthyroidism, hx of Splenic artery aneurysm , Parkinson's with resting tremor on Sinemet, Tb that was treated in 1970, GERD , Obesity, hx of R Nephrectomy presenting to ED for weakness and increased shaking morning of admission. Sepsis- poa, active- source likely PNA. UTI possible however UA- LE/Nit- neg. Bacteria- mod. WBC- 15.2 on admit, downtrending. Fever- 38.4. HR- 124. - 01/29/17- CXR- Prominent interstitium and upper lobe scarring unchanged from the prior examination. Mild early developing pulmonary edema cannot be excluded and clinical correlation recommended. - ED gave Ceftriaxone/Azithromycin. Pt started on Zosyn 01/29. - Blood, Sputum cx ordered. Respiratory Viral Panel, Strep Pn ag- neg. Legionella ag- pending. - Consider CT Chest to evaluate upper lobe scarring, infiltrates. Weakness- poa, active- - Unclear etiology. Likely related to above. Pt does appear dehydrated on exam. Difficulty with words per family. CT Head- no evidence of CVA. - Fluid resuscitate w/ IVF. - Dr. Zavaleta is pt's outpatient neurologist, discussed with Dr. Levi who is quarry supervisor dimension stone. Will get MRI/MRA once renal function improves in AM. Elevated Troponin- poa, active- Likely demand ischemia due to dehydration, tachycardia, or illness. Trend Troponins to peak. Check CPK and CK-MB. Discussed with Cardiology, will get Echo stat. Medical Management for now- ASA, Beta Alan, hold off statin given risk of Rhabdomyolysis. Parkinson's- chronic, active- Pt on exam has severe resting tremor. Possible may have missed doses per family. Consider seizures, however less likely. - Continued on Sinemet at home dose, checked w/ Neuro Office, Dose is 1.5 QID. - Resume Mm Relaxer, tizanidine. - Will consult Neurology. Dr. Zavaleta is outpatient neurologist. PITA- poa, active- likely prerenal due to dehydration. hx of R Nephrectomy. Avoid Nephrotoxic agents. Continue with IVF Tachycardia- poa, active May be due to missed Metoprolol vs hypovolemia. Corrected with IVF. - EKG shows Atrial Flutter. Past/current EKG have artifact due to tremor. Repeat once tremor improves. -Can resume Metoprolol as BP tolerates, changed to short acting for now to titrate. HTN- poa, active. pt was initially hypotensive on admit. Likely due to hypovolemia as responded to IVF. -Can resume Metoprolol as BP tolerates, changed to short acting for now to titrate. GERD- chronic, stable. Obesity-chronic, stable. Code- code status unclear. Pt does not have advanced directed. Was DNR/DNI past admission. Pt can not communicate wishes at this time. Family would like full code until decision maker, sister, can be contacted. Status- Patient is admitted under inpatient status expected length of stay greater than 2 midnights due to severity of presenting symptoms, risk of adverse events, and complexity of treatment plan Pain Evaluation: Adequate Pain Control VTE Prophylaxis: Sub-Q Heparin (Unfractionated) Resuscitation Status: CPR: Attempt Resuscitation (Pt can not communicate code status. Pending call back from daughter who is decision maker. ) Ash Noyola MD Jan 29, 2017 13:32
[2017-01-29 14:03] LABS: TROPONIN T 0.044 ug/L (0.0-0.011)
[2017-01-29] MEDS ORDERED: CARB1TAB14 PO (14:27)
--- NOTE | 2017-01-29 14:59 | DRSVH ---
PROCEDURE: CT BRAIN WITHOUT CONTRAST ([id number]) INDICATIONS: Dysphagia, weakness, Stroke rule out TECHNIQUE: Noncontrast 4.5 mm thick angled axial sections acquired from the foramen magnum to the vertex, with c oronal reformats. COMPARISON: None. FINDINGS: Image quality: Excellent. CSF spaces: Basal cisterns are patent. No extra-axial fluid collections. Ventricles are normal in size and shape. Brain: No midline shift. No intracranial masses or hemorrhage. Jimenez-white matter interface is norm al. Skull and face: Calvarium and visualized facial bones are intact, without suspicious lesions. Sinuses: Visualized sinuses and mastoids are clear. IMPRESSION: 1. No acute intracranial findings. If there is high clinical suspicion for acute or early subacute in farct, noncontrast MRI of the brain may be helpful. Dictated by: Deysi Martin M.D. on 01/29/2017 at 14:48 Approved by: Deysi Martin M.D. on 01/29/2017 at 14:57
--- NOTE | 2017-01-29 16:34 | CONS ---
[address] [address] CONSULTATION REPORT PATIENT: KINJAL TOBIAS : 1955 MR#: [id number] ADMIT: 01/29/2017 JOB ID: [id number] DATE OF SERVICE: 01/29/2017 CARDIOLOGY CONSULTATION: REASON FOR CONSULT: Hospitalist team asked me to see this patient regarding abnormal troponin. CHIEF COMPLAINT: Weakness, fever. The patient appears to be confused. She is not communicating. I tried to get information from her brother who lives with her as well as her daughter. Her daughter does not know much about present history. I reviewed her previous records as well. I reviewed her hospital records. PRESENT HISTORY: This 61-year-old pleasant female who has a history of significant Parkinson disease with resting tremor, history of essential hypertension, obesity, GERD, history of splenic artery aneurysm about 2.[address] abdomen done in July 2013, history of tuberculosis in 1970, history of chest pain June 27, 2016. At that time echocardiogram revealed LV ejection fraction 60%-65% with [id number] TR, normal myocardial perfusion study in July 2013, got admitted because of above-mentioned chief complaint. According to the brother this morning she was moaning. She was very weak. She was shaking. Her temperature was elevated as well. In the emergency department, the patient received a single dose of carbidopa and levodopa as well as started on azithromycin and ceftriaxone with possible UTI and pneumonia. According to the hospitalist team, she was not taking her Parkinson medications regularly. At present, she appears to be warm. She is having significant hand shake. She is not communicating, however, she appears to be conscious. No seizure type of activity. She is lying down flat. PAST MEDICAL HISTORY: 1. History of parkinsonism. 2. Essential hypertension. 3. History of GERD. 4. Obesity. 5. History of chronic shoulder pain with history of impingement syndrome. 6. History of tuberculosis in 1970. 7. History of right nephrectomy and tubal . 8. As per the recent hospital note hypothyroidism. PAST SURGICAL HISTORY: As stated above. ALLERGIES: No known allergies. MEDICATION: According to the hospital note: 1. Carbidopa/levodopa 2500 mg combination three times a day. 2. Albuterol inhalers. 3. Vitamin D3 1000 units daily. 4. Claritin 10 mg daily. 5. Magnesium oxide 250 mg daily. 6. Metoprolol succinate 25 mg daily. 7. Multivitamins. 8. Ranitidine. SOCIAL HISTORY: No obvious alcohol abuse. History of smoking present. FAMILY HISTORY: Positive for premature coronary artery disease, alcoholism, seizure. REVIEW OF SYSTEMS: I tried to obtain comprehensive at least 10 point review of system but patient is not very communicative. PHYSICAL EXAMINATION: Blood pressure 117/62. The patient appears to be tachycardic. Respiratory rate 22, oxygen saturation room air 95%. HEENT: No significant jaundice. Neck: No apparent JVD. Body appears to be warm. Temperature is about 100.2 Fahrenheit. Chest: Decreased air entry at the bases. CVS: The patient appears to be tachycardia. No obvious S3, S4 or murmur. Abdomen: No obvious pulsatile mass or hepatomegaly. Extremities: The patient appears dry. No obvious pedal edema. Vascular: No evidence of critical limb ischemia. ENROLLMENT MANAGEMENT VICE PRESIDENT: The patient is not communicative. Unable to perform detailed ENROLLMENT MANAGEMENT VICE PRESIDENT examination. LABORATORIES: The patient came with WBC 15.2 with polymorphs 89.4, hemoglobin early in the morning 15.4, after hydration 12.6. Platelets 198, polymorphs 83.2 (repeat polymorphs). Sodium 143, potassium 4.7, BUN 31, creatinine 1.41. She came with a creatinine of 2.63. Lactic acid 1.2. Total bilirubin 0.8. AST 112, ALT 30. Ammonia level 43. CPK 2787. MB 40.5, however, MB percent 1.5. Troponin T 0.010 and 0.044. ProBNP 2332. Magnesium 2.3. IMAGING: CT brain: No acute intracranial findings. X-ray chest: Prominent interstitium and upper lobe scarring unchanged from the prior examination. Lung volumes are increased. Heart size normal. EKG today at about 4:16 a.m. revealed narrow QRS regular tachycardia, likely sinus tachycardia, rate about 132 with baseline artifacts. I do not see any significant ST elevation. Those artifacts are likely due to significant hand tremors. ASSESSMENT AND PLAN: Abnormal troponin as well as BNP in the setting of likely infection, fever. Her CPK MB significantly elevated, however, index is normal. The patient has parkinsonism. She is vigorously shaking her hands. Likely source of CPK MB is musculoskeletal. Troponin elevation could be due to underlying sepsis as well. She came with acute renal failure with creatinine 2.63, which may cause abnormal troponin as well. Her ProBNP is elevated but clinically she appears dry. She is not in volume overload. Clinically, she does not appear to be in gross congestive heart failure. Hence, at this point of time, I am not suspecting acute myocardial infarction. In May 2016, her LV function was preserved. At this point of time, we will repeat echocardiogram to make sure there is no new wall motion abnormalities or LV dysfunction. In view of acute renal failure, possible rhabdo sepsis, will not start her on a statin. Continue tolerable dose of beta lia. Her tachycardia which appears to be sinus tachycardia will settle down. Once fever will get better, underlying infection will get better. Further workup I will leave up to our hospitalist team. Discussed the plan with the family as well. TOTAL TIME SPENT: Today about 75 minutes which includes reviewing old charts, having discussion with the family members as well as hospitalist team.
[2017-01-29] MEDS: Heparin 5,000 Unit/mL Inj SUBQ SCH (16:37)
--- NOTE | 2017-01-29 16:52 | DRSVH ---
[facility] [address] [place] [address] Echocardiogram Report Name: KINJAL TOBIAS EStudy Date : 01/29/2017 Height: 62 in Hospital Exam Location: [facility] Weight: 150 lb Gender: Female BSA: 1.7 m2 : 1955 Age: 61 yrs BP: 120/47 mm Hg Reason For Study: TACHYCARDIA Ordering Physician: Michael Santos Performed By: Gaurav Cooper Referring Physician: LAUREN COBB Interpretation Summary The left ventricular cavity is small. The left ventricle is hyperdynamic. The ejection fraction is estimated to be 70-75%. Diastolic function could not be accurately assessed due to tachycardia. The right ventricle grossly appears normal in size with probable normal systolic function. There is mild tricuspid regurgitation. Compared to the prior echo exam, there has been a decrease in TR severity. The right ventricular systolic pressure is estimated at 44 mmHg assuming a right atrial pressure of 3 mm Hg. Compared to the prior echo exam, there has been an mild increase in the severity of pulmonary hypertension. Procedure: A two-dimensional transthoracic echocardiogram with color flow and Doppler was performed. The study quality was technically difficult. Comparison is made with the echocardiogram of 06/27/16. Patient had severe tremors through most of exam and EKG could not be obtained due to shaking. Near end of exam, the tremors subsided and she was sinus tachy w/ a heart rate of 135-140 bpm. Left Ventricle: The left ventricular cavity is small. Left ventricular wall thickness is mildly increased. There is no thrombus. The ejection fraction is estimated to be 70-75%. The left ventricle is hyperdynamic. There are no obvious focal wall motion abnormalities noted but poor endocardial definition reduces the sensitivity for the detection of such. Diastolic function could not be accurately assessed due to tachycardia. Right Ventricle: The right ventricle grossly appears normal in size with probable normal systolic function. Atria: The left atrium grossly appears normal in size. The left atrium has mildly decreased in size since the prior echo exam. The right atrium grossly appears normal in size. There is no Doppler evidence for an atrial septal defect. Mitral Valve: The mitral valve leaflets appear borderline thickened, but open well. There is mild mitral annular calcification. There is no mitral regurgitation noted. Aortic Valve: The aortic valve is grossly normal. There is no aortic valve stenosis. No aortic regurgitation is present. Tricuspid Valve: The tricuspid valve is not well visualized, but is grossly normal. There is mild tricuspid regurgitation. The right ventricular systolic pressure is estimated at 44 mmHg assuming a right atrial pressure of 3 mm Hg. Compared to the prior echo exam, there has been a decrease in TR severity. Compared to the prior echo exam, there has been an increase in the severity of pulmonary hypertension. Pulmonic Valve: The pulmonic valve is not well seen, but is grossly normal. There is no pulmonic valvular regurgitation. Great Vessels: The aortic root is normal size. The ascending aorta could not be visualized. The aortic arch is mildly enlarged. The pulmonary artery is normal size. The IVC is of normal diameter and collapses greater than 50% with a sniff. This suggests a low right atrial pressure of 3 mm Hg. Pericardium/ Pleura There is no pericardial effusion. There is an anterior echo-free space consistent with a fat pad. There is no pleural effusion. MMode/2D Measurements & Calculations LVIDd: 3.7 cm RA area LVOT diam: 2.0 cm LVIDs: 2.5 cm LA A4 area: 17.9 cm Ao root diam FS: 33.6 % LA length (vol) : 10.8 2m IVSd: 1.0 cm Ao Arch Diam (Prox LVPWd: 0.99 cm Trans): 3.4 cm LV pandey. diameter/BSA LV sys. diameter/BSA (cm/m^2): 2.2 (cm/m^2): 1.5 Doppler Measurements & Calculations Ao V2 max: 197.0 cm/sec TR max dickson Ao V2 mean LV V1 max PG Ao max P.5 mmHg : 318.9 cm/sec : 145.7 cm/sec Ao mean P.0 mmHg TR max PG Ao V2 VTI: 30.2 cmLV V1 VTI LVOT Max Dickson : 40.7 mmHg : 22.1 cm : 137.2 cm/sec ALVARO(V,D): 2.2 cm2 ALVARO(I,D): 2.3 cm sev ratio: 0.73 ALVARO indexed to BSA (cm^2/m^2): 1.4 Reading Physician:JOAQÍUN
[2017-01-29] MEDS: Piper-Tazo 3.375 Gm/50 mL D5W Minibag Plus - Q8H over 4 hrs IV SCH ×2 (21:31)
[2017-01-29] MEDS ORDERED: 0.9% Sodium Chloride 500 ML IV ONE (22:30)
[2017-01-30] VITALS (8 sets, daily range): BP systolic 76–143; BP diastolic 42–82; PULSE 68–110; RESP 18–24; O2SAT 95–97
[2017-01-30] MEDS: Albuterol 2.5 mg/3 mL Inhalation Solution NEB SCH ×2 (00:46→05:02)
[2017-01-30] MEDS: Heparin 5,000 Unit/mL Inj SUBQ SCH ×3 (01:21→16:57)
[2017-01-30] MEDS ORDERED: Dextrose 5% 0.45% NaCl 1,000 ML IV SCH (06:00)
[2017-01-30 06:24] LABS: BASOPHILS % (AUTO) 0.4 % (0-3); EOSINOPHILS % (AUTO) 1.8 % (0-5); MONOCYTES % (AUTO) 7.2 % (4-12); Mean Corpuscular Hemoglobin 28.1 pg (27.0-35.0); Mean Corpuscular Volume 85.3 fL (81-100); NEUTROPHILS % (AUTO) 79.6 % (40-74); Platelet Count 188 bil/L (150-400)
[2017-01-30] MEDS ORDERED: Albuterol 2.5 mg/3 mL Inhalation Solution NEB PRN (09:02)
[2017-01-30] MEDS: Piper-Tazo 3.375 Gm/50 mL D5W Minibag Plus - Q8H over 4 hrs IV SCH ×4 (09:14→19:48)
[2017-01-30 09:35] LABS: Phosphorus 3.2 mg/dL (2.5-4.9)
--- NOTE | 2017-01-30 09:37 | DRSVH ---
PROCEDURE: X-RAY CHEST ONE VIEW, PORTABLE ([id number]) INDICATIONS: SOB, cough TECHNIQUE: One view of the chest was acquired. COMPARISON: [facility], CR, XR CHEST 1VW (PORTABLE), 01/29/2017, 4:45. FINDINGS: Surgical changes and devices: Cholecystectomy clips. Lungs and pleura: Diffuse appearance of increased pulmonary vascularity with coarsened interstitium p articularly within the left lung. Mediastinum: Mediastinal contours appear normal. Heart size is normal. Bones and chest wall: No suspicious bony lesions. Overlying soft tissues appear unremarkable. IMPRESSION: Interval worsening of interstitial opacities and increased pulmonary vascularity as above . Appearance is suggestive of worsening edema. Development of superimposed atelectasis or pneumonia c annot be excluded. Dictated by: Mica Castillo M.D. on 01/30/2017 at 9:35 Approved by: Mica Castillo M.D. on 01/30/2017 at 9:36
--- NOTE | 2017-01-30 11:31 | PCM.PNMED ---
Subjective Date of Service Jan 30, 2017 Subjective Pt is more awake today. More verbal. Still tremor. Slept well without tremor after getting her Tizanidine yesterday. Exam Vital Signs Vital Sign - Last Date Time Temp Pulse Resp B/P Pulse Ox O2 Delivery O2 Flow Rate FiO2 01/30/17 09:09 37.7 72 22 143/82 95 Room Air Intake and Output 01/29/17 01/29/17 01/30/17 Cumulative From/Thru 15:00 23:00 07:00 01/29/17 07:30 - 01/30/17 06:37 Intake Total 525 ml 1565 ml 0 ml 2090 ml Balance 525 ml 1565 ml 0 ml 2090 ml Intake Oral 0 ml 0 ml 0 ml IV Total 525 ml 1565 ml 2090 ml # Voids 2 2 4 # Bowel Movements 1 1 Exam Gen: NAD, More Awake and alert, answering some questions today. +tremor b/l UE. HEENT: NCAT, PERRLA, EOMI, MMM, sclera anicteric. Neck: Soft, supple, no thyromegaly/JVD/LAD. Resp: CTAB, no R/R/W. CV: S1 S2, RRR, No M/R/G Abd: Soft, (+) BS, NT/ND, no guarding/rebound/organomegaly. Ext: +PP, No edema. Skin: warm/dry/intact Neuro/Psych: Mostly Non-verbal. +significant tremor of both hands IVs and Medications Medications Reviewed: Medications were reviewed in detail Lab and Diagnostics Result Diagram: 01/30/17 0615 01/30/17 0615 Microbiology 01/29/17- CXR- Prominent interstitium and upper lobe scarring unchanged from the prior examination. Mild early developing pulmonary edema cannot be excluded and clinical correlation recommended. X-Rays, CTs and MRIs 01/29- CT Head wo cont- 1. No acute intracranial findings. If there is high clinical suspicion for acute or early subacute infarct, noncontrast MRI of the brain may be helpful. Cardiac Echo Impressions The left ventricular cavity is small. The left ventricle is hyperdynamic. The ejection fraction is estimated to be 70-75%. Diastolic function could not be accurately assessed due to tachycardia. The right ventricle grossly appears normal in size with probable normal systolic function. There is mild tricuspid regurgitation. Compared to the prior echo exam, there has been a decrease in TR severity. The right ventricular systolic pressure is estimated at 44 mmHg assuming a right atrial pressure of 3 mm Hg. Compared to the prior echo exam, there has been an mild increase in the severity of pulmonary hypertension. Assessment & Plan 61 yo pleasant Female h/o of HTN, Hyperthyroidism, hx of Splenic artery aneurysm , Parkinson's with resting tremor on Sinemet, Tb that was treated in 1970, GERD , Obesity, hx of R Nephrectomy presenting to ED for weakness and increased shaking morning of admission and CPK of 2787 suggestive of Mild Rhabdomyolysis Weakness- poa, active- - Unclear etiology. Likely related to above. Pt does appear dehydrated on exam. Difficulty with words per family. 01/29 CT Head- no evidence of CVA. - Fluid resuscitate w/ IVF. - Dr. Zavaleta is pt's outpatient neurologist, discussed with Dr. Levi who is validation engineer. - Will get MRI/MRA 01/30. Mild Rhabdomyolysis- poa, active- likely / to uncontrolled Parkinson's. Initial CPK 2787, trending down 2398. UA- no blood, rbc. Pt has had dec po intake and likely missed doses. Tremors have been worsening over last day per family. Trend CPK. Parkinson's- chronic, active- Pt on exam has severe resting tremor. Possible may have missed doses per family. Consider seizures, however less likely. - Continued on Sinemet at home dose, checked w/ Neuro Office, Dose is 1.5 QID. - Resume Mm Relaxer, tizanidine. - Will consult Neurology. Dr. Zavaleta is outpatient neurologist. Sepsis- poa, active- source likely PNA. UTI possible however UA- LE/Nit- neg. Bacteria- mod. WBC- 15.2 on admit, downtrending ->9.2. Fever- 38.4. HR- 124. 06/16- CXR- Prominent interstitium and upper lobe scarring unchanged from the prior examination. Possible mild early developing pulmonary edema. 01/30- CXR- suggestive of worsening edema. superimposed atelectasis or pneumonia. - ED gave Ceftriaxone/Azithromycin. Pt started on Zosyn 01/29. - Blood, Sputum cx- ngtd.Strep Pn ag- neg. Respiratory Viral Panel ordered - Cardiac Tele, Continue Pulse Ox. - Consider CT Chest to evaluate upper lobe scarring, infiltrates. PITA- poa, improving- Scr 2.63 on admit->1.41->0.99 likely prerenal due to dehydration. May be component of Rhabdomyolysis, UA- neg for blood. hx of R Nephrectomy. Avoid Nephrotoxic agents. Continue with IVF, slow IVF due to pulmonary congestion. Sinus Tachycardia- poa, active- Cardiology Consulted- Dr. Santos, Rec Echo, trending Trop/CK-MB, Read EKG- says artifact due to shaking. Read as Sinus Tach. Treat infection/hypovolemia and Tachycardia should improve. - Medical Management for now- ASA, hold off statin given risk of Rhabdomyolysis , Beta Alan if can tolerate due to hypotension. -01/30/2017- Echo- EF 70-75%. LV- hyperdynamic. Mild TR. Elevated Troponin- poa, active- Likely demand ischemia due to MSK etiology. Troponins to peaked 0.044. CK-MB- peaked 40.5. - See cardio recs above. HTN- poa, active. pt was initially hypotensive on admit. Likely due to hypovolemia as responded to IVF. -Held Metoprolol, consider restarting at lower dose as BP tolerates, change to short acting for now to titrate. GERD- chronic, stable. Obesity-chronic, stable. Code- per family discussion and patient's expressed wishes, has been made DNR/ DNI Status- Patient is admitted under inpatient status expected length of stay greater than 2 midnights due to severity of presenting symptoms, risk of adverse events, and complexity of treatment plan VTE Prophylaxis: Sub-Q Heparin (Unfractionated) VTE Mechanical Devices: Intermittant Pneumatic CD Resuscitation Status: DNR/DNI:Do Not Resuscitate/Intubate ( ) Ash Noyola MD Jan 30, 2017 11:31 Ash Noyola MD Jan 30, 2017 11:31
--- NOTE | 2017-01-30 15:45 | DRSVH ---
PROCEDURE: MRI STROKE PROTOCOL ([id number]) Pre- and post-contrast brain MRI, non-contrast brain MR angiogram, pre- and postcontrast neck MR katelynn ogram INDICATIONS: Weakness, word finding difficulty TECHNIQUE: Brain: Noncontrast axial T1 spin echo, axial T2 fast spin echo, sagittal and axial FLAIR, coronal T2 fast spin echo, axial gradient echo, axial diffusion and ADC through the brain. After the administr ation of contrast, axial 3D VIBE of the cranial vasculature and brain. Brain MRA: Non-contrast 3-D time of flight MR angiogram, with multiple isgptdw-jqxjyrfgp-hielrbcxxe (MIP) reformats performed. Neck MRA: Axial and sagittal TruFISP through the neck. Coronal dynamic MR angiogram during administ ration of contrast in the arterial and venous phases, with 3-dimenstional nldryyd-mtfbtbycl-odydgypbp n (MIP) reformats constructed from subtraction images. COMPARISON: None. FINDINGS: Image quality: Motion is present on several sequences, limiting areas of fine detail evaluation. BRAIN: CSF spaces: Ventricles are normal in size and shape. Basal cisterns are patent. No extra-axial flu id collections. Brain: No intracranial bleeds or mass effects. Jimenez-white matter interface is normal. Diffusion we ighted images show no acute ischemic insults. Brainstem appears normal. Normal intravascular flow v oids are present. No abnormal intracranial enhancement. Skull and face: Calvarial marrow signal is normal. Orbits appear normal. Sinuses: Sinuses and mastoids are clear. BRAIN MR ANGIOGRAM: Anterior circulation: Intracranial internal carotid arteries are normal in size and enhancement. Th e flow within the paired anterior cerebral arteries is normal and symmetric. The flow within the mid dle cerebral arteries is normal and symmetric. The anterior communicating artery is seen. No stenos es, occlusions, or aneurysms. Posterior circulation: The visualized portions of the vertebral arteries demonstrate normal caliber, and join to form a normal appearing basilar artery. The flow within the posterior cerebral arteries is normal and symmetric. No stenoses, occlusions, or aneurysms. NECK MR ANGIOGRAM: Carotids: Great vessels demonstrate a conventional anatomy as they arise from the aortic arch. The origins of the common carotid arteries appear patent. The calibers and courses of both common caroti d arteries are normal. The bifurcation regions appear normal bilaterally. The internal carotid faye carol demonstrate normal course and caliber. Posterior circulation: The origins of the vertebral arteries are obscured secondary to motion. More superior portions of both vertebral arteries demonstrate normal course and caliber, and join to form a normal appearing basilar artery. Miscellaneous: Subclavian arteries appear patent. Pre-contrast images through the neck show no soft tissue abnormalities. IMPRESSION: 1. No acute intracranial process. 2. Mild atrophy and chronic microvascular ischemic changes. 3. No areas of hemodynamically significant stenosis, vascular occlusion or aneurysmal dilation within the anterior circulation. 4. No areas of hemodynamically significant stenosis, vascular occlusion or aneurysmal dilation within the posterior circulation. 5. No areas of hemodynamically significant stenosis, vascular occlusion or aneurysmal dilation within the neck vasculature. Origin of vertebral arteries are not well characterized secondary to motion. The estimate of stenosis included in the report of the imaging study was calculated using the NASCET method Dictated by: Mica Castillo M.D. on 01/30/2017 at 15:36 Approved by: Mica Castillo M.D. on 01/30/2017 at 15:43
--- NOTE | 2017-01-30 16:21 | PROG NOTE ---
[address] [address] PROGRESS NOTE PATIENT: KINJAL TOBIAS : 1955 MR#: [id number] ADMIT: 01/29/2017 JOB ID: [id number] DATE: 01/30/2017 SUBJECTIVE: Patient appears to be better today. She is not shaking that much. Her mental status is better than yesterday. No active chest pain or worsening shortness of breath or palpitations or new cardiovascular symptoms. OBJECTIVE: Blood pressure 97-143 systolic, heart rate 70-106, respiratory rate ranging 20-24, oxygen saturation room air 97%. Neck: No apparent JVP. Chest: Decreased air entry with some rhonchi. CVS: No S3, no S4 or new cardiac murmur. Extremities: No significant pedal edema. Abdomen: No obvious pulsatile mass. 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 On telemetry, sinus rhythm and sinus tachycardia. No sustained ventricular tachycardia. Echocardiogram yesterday revealed hyperdynamic left ventricle with LV ejection fraction 70% to 75%. Mild TR. Pulmonary artery systolic pressure about 44 mmHg. LABORATORY DATA: Hemoglobin 12.8, WBC decreased to 9.5. On January 29 it was 15.2. Platelets 188. Sodium 144, potassium 4.6, BUN 36, creatinine, 0.99. CPK 2398. MB 20.9. Troponin T 0.016 and index 0.9. Lactic acid 1.5. ASSESSMENT AND PLAN: Abnormal troponin as well as BMP in the setting of infection, sepsis, fever, likely pneumonia and likely rhabdomyolysis due to sepsis, underlying parkinsonism and vigorous shaking, as she was not taking her parkinsonism medications. On 2D echo, LV function is hyperdynamic. Previous ischemic workup was negative. Management of her underlying medical problems, I will leave up to hospitalist team. At this point of time, Cardiology service will sign off. Feel free to call us if need further assistance. Discussed the plan with the patient's family as well as hospitalist team. TIME SPENT: Total time spent today about 35 minutes.
[2017-01-31] VITALS (9 sets, daily range): BP systolic 96–114; BP diastolic 56–69; PULSE 86–119; RESP 18–20; O2SAT 95–97
[2017-01-31] MEDS: Heparin 5,000 Unit/mL Inj SUBQ SCH ×4 (00:31→23:50)
[2017-01-31 06:48] LABS: BASOPHILS % (AUTO) 0.6 % (0-3); EOSINOPHILS % (AUTO) 3.1 % (0-5); MONOCYTES % (AUTO) 11.1 % (4-12); Mean Corpuscular Hemoglobin 27.8 pg (27.0-35.0); Mean Corpuscular Volume 85.7 fL (81-100); NEUTROPHILS % (AUTO) 65.1 % (40-74); Platelet Count 181 bil/L (150-400)
[2017-01-31 08:07] LABS: Free Thyroxine Index 4.9 (1.2-4.9); Thyroxine (T4) 13.9 ug/dL (4.5-12.0)
[2017-01-31] MEDS: Piper-Tazo 3.375 Gm/50 mL D5W Minibag Plus - Q8H over 4 hrs IV SCH ×2 (08:40)
--- NOTE | 2017-01-31 11:21 | DRSVH ---
PROCEDURE: CT CHEST WITHOUT CONTRAST ([id number]) INDICATIONS: fever, suspect PNA per CXR TECHNIQUE: Noncontrast 5 mm thick sections acquired from the pulmonary apices to the posterior costophrenic angl es. 7 mm thick coronal and sagittal MIP reformats were then acquired. For radiation dose reduction, the following was used: automated exposure control, adjustment of mA and/or kV according to patient size. COMPARISON: [facility], CT, CHEST/ABDOMEN WITH CONTRAST, 06/14/2014, 10:31. FINDINGS: Image quality: Excellent. Lungs and pleura: There are small bilateral pleural effusions with associated mild compressive atele ctasis. There is volume loss within the upper lobes and right middle lobe redemonstrated with scarri ng and bronchiectasis likely representing sequelae of prior infection. There are increased groundgla ss opacities with a predominance in the bilateral upper lobes as well as numerous bilateral scattered small pulmonary nodules with a centrilobular distribution. Mild septal thickening is also present. The trachea and central airways appear patent. Mediastinum: Heart size is normal. No pericardial effusion. No mediastinal adenopathy by size crit eria. There are bilateral calcified mediastinal and hilar lymph nodes consistent with old granulomat ous disease. Thoracic aorta and central pulmonary arteries are normal in size. Esophagus is normal i n caliber. No hiatal hernia. Bones and chest wall: No suspicious bony lesions. No vertebral body compression fractures. No axil dotty or supraclavicular adenopathy by size criteria. Thyroid gland is partially visualized without d iscrete nodules identified. Abdomen: Visualized upper abdomen redemonstrates a peripherally calcified splenic artery aneurysm me asuring up to 2.3 cm which appears similar to the prior study. IMPRESSION: 1. Bilateral diffuse small pulmonary nodules with a centrilobular distribution likely represents an atypical infection. The differential is broad and includes noninfectious inflammatory etiologies as well as neoplasm although these are less likely. Recommend correlation clinically and followup to de monstrate resolution. 2. Bilateral increased groundglass opacities with multiple thickening consistent with pulmonary shara a which may be due to cardiogenic or noncardiogenic etiologies such as infection. 3. Small bilateral pleural effusions. 4. Scarring, volume loss, and bronchiectasis within the upper lobes likely related to sequelae of pr ior infection such as from tuberculosis given the presence of calcified mediastinal and hilar lymph n odes. 5. Splenic artery aneurysm appears similar in size compared to the prior study on limited noncontras t evaluation. Dictated by: Maciej Henderson M.D. on 01/31/2017 at 11:13 Approved by: Maciej Henderson M.D. on 01/31/2017 at 11:20
--- NOTE | 2017-01-31 14:59 | PCM.PNMED ---
Subjective Date of Service Jan 31, 2017 Subjective Pt denies CP/SOB. Tremors much improved. Exam Vital Signs Vital Sign - Last Date Time Temp Pulse Resp B/P Pulse Ox O2 Delivery O2 Flow Rate FiO2 01/31/17 14:23 36.4 98 18 101/69 97 Room Air Intake and Output 01/30/17 01/30/17 01/31/17 Cumulative From/Thru 15:00 23:00 07:00 01/29/17 07:30 - 01/31/17 01:08 Intake Total 520 ml 2610 ml Output Total 600 ml 600 ml Balance -80 ml 2010 ml Intake Oral 520 ml 520 ml IV Total 2090 ml Output Urine Total 600 ml 600 ml # Voids 4 # Bowel Movements 2 3 Exam Gen: NAD, More Awake and alert, answering questions today. HEENT: NCAT, PERRLA, EOMI, MMM, sclera anicteric. Neck: Soft, supple, no thyromegaly/JVD/LAD. Resp: CTAB, no R/R/W. CV: S1 S2, RRR, No M/R/G Abd: Soft, (+) BS, NT/ND, no guarding/rebound/organomegaly. Ext: +PP, No edema. Skin: warm/dry/intact Neuro/Psych: + tremor of both hands- improved. IVs and Medications Medications Reviewed: Medications were reviewed in detail Lab and Diagnostics Result Diagram: 01/31/17 0633 01/31/17 0633 Microbiology 01/29/17- CXR- Prominent interstitium and upper lobe scarring unchanged from the prior examination. Mild early developing pulmonary edema cannot be excluded and clinical correlation recommended. X-Rays, CTs and MRIs 01/31/17- CT CHEST WITHOUT CONTRAST 1. Bilateral diffuse small pulmonary nodules with a centrilobular distribution likely represents an atypical infection. The differential is broad and includes noninfectious inflammatory etiologies as well as neoplasm although these are less likely. Recommend correlation clinically and followup to demonstrate resolution. 2. Bilateral increased groundglass opacities with multiple thickening consistent with pulmonary edema which may be due to cardiogenic or noncardiogenic etiologies such as infection. 3. Small bilateral pleural effusions. 4. Scarring, volume loss, and bronchiectasis within the upper lobes likely related to sequelae of prior infection such as from tuberculosis given the presence of calcified mediastinal and hilar lymph nodes. 5. Splenic artery aneurysm appears similar in size compared to the prior study on limited noncontrast evaluation. 01/29- CT Head wo cont- 1. No acute intracranial findings. If there is high clinical suspicion for acute or early subacute infarct, noncontrast MRI of the brain may be helpful. Cardiac Echo Impressions The left ventricular cavity is small. The left ventricle is hyperdynamic. The ejection fraction is estimated to be 70-75%. Diastolic function could not be accurately assessed due to tachycardia. The right ventricle grossly appears normal in size with probable normal systolic function. There is mild tricuspid regurgitation. Compared to the prior echo exam, there has been a decrease in TR severity. The right ventricular systolic pressure is estimated at 44 mmHg assuming a right atrial pressure of 3 mm Hg. Compared to the prior echo exam, there has been an mild increase in the severity of pulmonary hypertension. Assessment & Plan 61 yo pleasant Female h/o of HTN, Hyperthyroidism, hx of Splenic artery aneurysm , Parkinson's with resting tremor on Sinemet, Tb that was treated in 1970, GERD , Obesity, hx of R Nephrectomy presenting to ED for weakness and increased shaking morning of admission for severe tremors, Sepsis due to pneumonia and Rhabdomyolysis with CPK of 2787. Rhabdomyolysis- poa, active- likely 2/2 to uncontrolled Parkinson's. Initial CPK 2787, trending down 2398->712. UA- no blood, rbc. Pt has had dec po intake and likely missed doses. Tremors have been worsening over last day per family. Trend CPK. Parkinson's- chronic, active- Pt on exam has severe resting tremor. Possible may have missed doses per family. Consider seizures, however less likely. - Continued on Sinemet at home dose, checked w/ Neuro Office, Dose is 1.5 QID. - Resume Mm Relaxer, tizanidine. - Take new dose of Sinemet 1.5 tablets four times daily. - Follow up with Dr. Zavaleta is outpatient neurologist. Sepsis- poa, active- source likely PNA. UTI possible however UA- LE/Nit- neg. Bacteria- mod. WBC- 15.2 on admit, downtrending ->9.2. Fever- 38.4. HR- 124. 906/16- CXR- Prominent interstitium and upper lobe scarring unchanged from the prior examination. Possible mild early developing pulmonary edema. 01/30- CXR- suggestive of worsening edema. superimposed atelectasis or pneumonia. - ED gave Ceftriaxone/Azithromycin. Pt started on Zosyn 01/29. - Blood, Sputum cx- ngtd.Strep Pn ag- neg. Respiratory Viral Panel ordered - Cardiac Tele, Continue Pulse Ox. Weakness- poa, resolved- - Unclear etiology. Likely related to above. Pt does appear dehydrated on exam. Difficulty with words per family. 01/29 CT Head- no evidence of CVA. - Fluid resuscitate w/ IVF. - Dr. Zavaleta is pt's outpatient neurologist, discussed with Dr. Levi who is control systems engineer. - Will get MRI/MRA 01/30. Bilateral diffuse small pulmonary nodules- poa, active- seen on CT Chest 01/31 likely due to atypical infection, can't rule out malignancy. Scarring evident b/ l Upper lobes due to past infection. Pt has hx of treated TB which explains scarring. Will need repeat CT Chest in 1 month to assess if antibiotics have treated infection. Hyperthroidism- chronic, uncontrolled- pt appears to have been taken of anti- Thyroid medication in past. Thyroid Panel repeated shows very low TSH- of 0.009 and T4- 13.9. This would explain pt's Sinus Tachycardia. Pt does not want to resume Anti-Thyroid meds. Will need to see PCP to repeat Thyroid panel to confirm. Recommend referral to [facility] [employer] for further more definitive treatment. HTN- poa, active. pt was initially hypotensive on admit. Likely due to hypovolemia as responded to IVF. -Held Metoprolol, consider restarting at lower dose as BP tolerates, change to short acting for now to titrate. Sinus Tachycardia- poa, active- Cardiology Consulted- Dr. Santos, Rec Echo, trending Trop/CK-MB, Read EKG- says artifact due to shaking. Read as Sinus Tach. Treat infection/hypovolemia and Tachycardia should improve. - Medical Management for now- ASA, hold off statin given risk of Rhabdomyolysis , Beta Alan if can tolerate due to hypotension. -01/30/2017- Echo- EF 70-75%. LV- hyperdynamic. Mild TR. PITA- poa, resolved- Scr 2.63 on admit->1.41->0.99 likely prerenal due to dehydration. May be component of Rhabdomyolysis, UA- neg for blood. hx of R Nephrectomy. Avoid Nephrotoxic agents. Continue with IVF, slow IVF due to pulmonary congestion. Elevated Troponin- poa, resolved- Likely demand ischemia due to MSK etiology. Troponins to peaked 0.044. CK-MB- peaked 40.5. - See cardio recs above. GERD- chronic, stable. Obesity-chronic, stable. Code- DNR/DNI Status- anticipate discharge in 1-2 days due to severity of presenting symptoms , risk of adverse events, and complexity of treatment plan VTE Prophylaxis: Sub-Q Heparin (Unfractionated) VTE Mechanical Devices: Intermittant Pneumatic CD Resuscitation Status: DNR/DNI:Do Not Resuscitate/Intubate ( ) Ash Noyola MD Jan 31, 2017 14:59
[2017-01-31] MEDS: Amoxicillin-Clav 875-125 mg Tablet PO SCH (18:18)
[2017-02-01] VITALS (8 sets, daily range): BP systolic 88–105; BP diastolic 49–65; PULSE 87–114; RESP 16–18; O2SAT 96–98
[2017-02-01] MEDS: Heparin 5,000 Unit/mL Inj SUBQ SCH ×2 (08:45→16:59)
[2017-02-01] MEDS: Amoxicillin-Clav 875-125 mg Tablet PO SCH ×2 (08:45→21:43)
[2017-02-01 09:23] LABS: BASOPHILS % (AUTO) 0.6 % (0-3); EOSINOPHILS % (AUTO) 6.1 % (0-5); MONOCYTES % (AUTO) 8.3 % (4-12); Mean Corpuscular Hemoglobin 28.2 pg (27.0-35.0); Mean Corpuscular Volume 84.7 fL (81-100); NEUTROPHILS % (AUTO) 66.3 % (40-74); Platelet Count 197 bil/L (150-400)
--- NOTE | 2017-02-01 13:18 | PCM.PNMED ---
Subjective Date of Service Feb 01, 2017 Subjective Pt has been afebrile overnight since starting po abx. Increased tremor this AM. Exam Vital Signs Vital Sign - Last Date Time Temp Pulse Resp B/P Pulse Ox O2 Delivery O2 Flow Rate FiO2 02/01/17 11:04 106 18 96 Room Air 02/01/17 09:56 37.1 100/52 Intake and Output 01/31/17 01/31/17 02/01/17 Cumulative From/Thru 15:00 23:00 07:00 01/29/17 07:30 - 02/01/17 06:26 Intake Total 200 ml 1120 ml 200 ml 4130 ml Output Total 790 ml 850 ml 650 ml 2890 ml Balance -590 ml 270 ml -450 ml 1240 ml Intake Oral 200 ml 1120 ml 200 ml 2040 ml IV Total 2090 ml Output Urine Total 790 ml 850 ml 650 ml 2890 ml # Voids 4 # Bowel Movements 2 5 Exam Gen: NAD, AOX3. HEENT: NCAT, PERRLA, EOMI, MMM, sclera anicteric. Neck: Soft, supple, no thyromegaly/JVD/LAD. Resp: CTAB, no R/R/W. CV: S1 S2, RRR, No M/R/G Abd: Soft, (+) BS, NT/ND, no guarding/rebound/organomegaly. Ext: +PP, No edema. Skin: warm/dry/intact Neuro/Psych: + tremor of both hands IVs and Medications Medications Reviewed: Medications were reviewed in detail Lab and Diagnostics Result Diagram: 02/01/1781902/01/17 0820 Microbiology 01/29/17- CXR- Prominent interstitium and upper lobe scarring unchanged from the prior examination. Mild early developing pulmonary edema cannot be excluded and clinical correlation recommended. X-Rays, CTs and MRIs 01/30/17 0957 Date of Service: 01/30/17 MRI STROKE PROTOCOL BRAIN MR ANGIOGRAM: 1. No acute intracranial process. 2. Mild atrophy and chronic microvascular ischemic changes. 3. No areas of hemodynamically significant stenosis, vascular occlusion or aneurysmal dilation within the anterior circulation. 4. No areas of hemodynamically significant stenosis, vascular occlusion or aneurysmal dilation within the posterior circulation. 5. No areas of hemodynamically significant stenosis, vascular occlusion or aneurysmal dilation within the neck vasculature. Origin of vertebral arteries are not well characterized secondary to motion. 01/29- CT Head wo cont- 1. No acute intracranial findings. If there is high clinical suspicion for acute or early subacute infarct, noncontrast MRI of the brain may be helpful. Cardiac Echo Impressions The left ventricular cavity is small. The left ventricle is hyperdynamic. The ejection fraction is estimated to be 70-75%. Diastolic function could not be accurately assessed due to tachycardia. The right ventricle grossly appears normal in size with probable normal systolic function. There is mild tricuspid regurgitation. Compared to the prior echo exam, there has been a decrease in TR severity. The right ventricular systolic pressure is estimated at 44 mmHg assuming a right atrial pressure of 3 mm Hg. Compared to the prior echo exam, there has been an mild increase in the severity of pulmonary hypertension. Assessment & Plan 61 yo pleasant Female h/o of HTN, Hyperthyroidism, hx of Splenic artery aneurysm , Parkinson's with resting tremor on Sinemet, Tb that was treated in 1970, GERD , Obesity, hx of R Nephrectomy presenting to ED for weakness and increased shaking morning of admission for severe tremors, Sepsis due to pneumonia and Rhabdomyolysis with CPK of 2787. Rhabdomyolysis- poa, active- likely 2/2 to uncontrolled Parkinson's. Initial CPK 2787, trending down 2398->712. UA- no blood, rbc. Pt has had dec po intake and likely missed doses. Tremors have been worsening over last day per family. Trend CPK. Parkinson's- chronic, active- Pt on exam has severe resting tremor. Possible may have missed doses per family. Consider seizures, however less likely. - Continued on Sinemet at home dose, checked w/ Neuro Office, Dose is 1.5 QID. - Resume Mm Relaxer, tizanidine. - Take new dose of Sinemet 1.5 tablets four times daily. - Follow up with Dr. Zavaleta is outpatient neurologist. - Pending PT/OT/APPLICATION SECURITY CONSULTANT eval. - Social work consult for HH-AID. Sepsis- poa, active- source likely PNA. UTI possible however UA- LE/Nit- neg. Bacteria- mod. WBC- 15.2 on admit, downtrending ->9.2. Fever- 38.4. HR- 124. 9/ 06/16- CXR- Prominent interstitium and upper lobe scarring unchanged from the prior examination. Possible mild early developing pulmonary edema. 01/30- CXR- suggestive of worsening edema. superimposed atelectasis or pneumonia. - Blood, Sputum cx- ngtd.Strep Pn ag- neg. Respiratory Viral Panel ordered - ED gave Ceftriaxone/Azithromycin. Pt started on Zosyn 01/29. - Changed to PO abx on 01/31- Augmentin 875mg twice daily and Doxycycline 100mg twice daily for total 14 days to end Jan 12. Weakness- poa, resolved- - Unclear etiology. Likely related to above. Pt does appear dehydrated on exam. Difficulty with words per family. 01/29 CT Head- no evidence of CVA. MRI/MRA- no acute process. No significant area of stenosis. - Dr. Zavaleta is pt's outpatient neurologist, discussed with Dr. Levi who is international banker. Bilateral diffuse small pulmonary nodules- poa, active- seen on CT Chest 01/31 likely due to atypical infection, can't rule out malignancy. Scarring evident b/ l Upper lobes due to past infection. Pt has hx of treated TB which explains scarring. Will need repeat CT Chest in 1 month to assess if antibiotics have treated infection and to see if pulmonary nodules are resolved or changed in size or number. Hyperthroidism- chronic, uncontrolled- pt appears to have been taken of anti- Thyroid medication in past. Thyroid Panel repeated shows very low TSH- of 0.009 and T4- 13.9. This would explain pt's Sinus Tachycardia. Pt does not want to resume Anti-Thyroid meds. Will need to see PCP to repeat Thyroid panel to confirm. Recommend referral to [employer] for further more definitive treatment. HTN- poa, active. pt was initially hypotensive on admit. Likely due to hypovolemia as responded to IVF. -Held Metoprolol, consider restarting at lower dose as BP tolerates, change to short acting for now to titrate. Sinus Tachycardia- poa, active- Cardiology Consulted- Dr. Santos, Rec Echo, trending Trop/CK-MB, Read EKG- says artifact due to shaking. Read as Sinus Tach. Treat infection/hypovolemia and Tachycardia should improve. -Medical Management- ASA, hold off statin given risk of Rhabdomyolysis, Beta Alan if can tolerate due to hypotension. -01/30/2017- Echo- EF 70-75%. LV- hyperdynamic. Mild TR. PITA- poa, resolved- Scr 2.63 on admit->1.41->0.99 likely prerenal due to dehydration. May be component of Rhabdomyolysis, UA- neg for blood. hx of R Nephrectomy. Avoid Nephrotoxic agents. Continue with IVF, slow IVF due to pulmonary congestion. Elevated Troponin- poa, resolved- Likely demand ischemia due to MSK etiology. Troponins to peaked 0.044. CK-MB- peaked 40.5. - See cardio recs above. GERD- chronic, stable. Obesity-chronic, stable. Code- DNR/DNI Status- anticipate discharge in 02/02/17, pending PT/OT/APPLICATION SECURITY CONSULTANT evals. VTE Prophylaxis: Sub-Q Heparin (Unfractionated) VTE Mechanical Devices: Intermittant Pneumatic CD Resuscitation Status: DNR/DNI:Do Not Resuscitate/Intubate ( ) Ash Noyola MD Feb 01, 2017 13:18
[2017-02-02 00:39] VITALS: BP 110/68; PULSE 100; RESP 18; O2SAT 96
[2017-02-02] MEDS: Heparin 5,000 Unit/mL Inj SUBQ SCH ×2 (01:01→10:25)
[2017-02-02 05:15] VITALS: BP 99/61; PULSE 85; RESP 16; O2SAT 97
[2017-02-02 07:57] VITALS: PULSE 105; RESP 18; O2SAT 97
[2017-02-02 08:41] VITALS: BP 99/65; PULSE 107; RESP 18; O2SAT 97
[2017-02-02 09:12] VITALS: PULSE 98
[2017-02-02] MEDS: Amoxicillin-Clav 875-125 mg Tablet PO SCH (10:25)
--- NOTE | 2017-02-02 12:18 | PCM.DC.MED ---
Discharge Summary Date of Service Feb 02, 2017 Dates of Hospitalization Date of Hospital Admission Jan 29, 2017 at 06:13 Date of Discharge: Feb 02, 2017 Providers: Admitting Physician: Jaiden Cuenca MD Primary Care Physician: Zachariah Anthony MD Attending Physician: Lauren Cobb MD Diagnosis at Time of Discharge Diagnosis at Time of Discharge Rhabdomyolysis- poa, resolved- Parkinson's- chronic, active- Sepsis due to Pneumonia , present on admit, active. Weakness- poa, resolved- - Unclear etiology. Likely related to above. Pt does appear dehydrated on exam. Difficulty with words per family. 01/29 CT Head- no evidence of CVA. MRI/MRA- no acute process. No significant area of stenosis. - Dr. Zavaleta is pt's outpatient neurologist, discussed with Dr. Levi who is executive personal assistant. Bilateral diffuse small pulmonary nodules- poa, active- seen on CT Chest 01/31 likely due to atypical infection, can't rule out malignancy. Scarring evident b/ l Upper lobes due to past infection. Pt has hx of treated TB which explains scarring. Will need repeat CT Chest in 1 month to assess if antibiotics have treated infection and to see if pulmonary nodules are resolved or changed in size or number. Hyperthroidism- chronic, uncontrolled- pt appears to have been taken of anti- Thyroid medication in past. Thyroid Panel repeated shows very low TSH- of 0.009 and T4- 13.9. This would explain pt's Sinus Tachycardia. Pt does not want to resume Anti-Thyroid meds. Will need to see PCP to repeat Thyroid panel to confirm. Recommend referral to [employer] Specialist for further more definitive treatment. HTN- poa, active. Pt was initially hypotensive on admit. Likely due to hypovolemia as responded to IVF. -Held Metoprolol, consider restarting at lower dose as BP tolerates, change to short acting for now to titrate. Sinus Tachycardia- poa, active- Cardiology Consulted- Dr. Santos, Rec Echo, trending Trop/CK-MB, Read EKG- says artifact due to shaking. Read as Sinus Tach. Treat infection/hypovolemia and Tachycardia should improve. -Medical Management- ASA, hold off statin given risk of Rhabdomyolysis, Beta Alan if can tolerate due to hypotension. -01/30/2017- Echo- EF 70-75%. LV- hyperdynamic. Mild TR. PITA- poa, resolved- Scr 2.63 on admit->1.41->0.99 likely prerenal due to dehydration. May be component of Rhabdomyolysis, UA- neg for blood. hx of R Nephrectomy. Avoid Nephrotoxic agents. Continue with IVF, slow IVF due to pulmonary congestion. Elevated Troponin- poa, resolved- Likely demand ischemia due to MSK etiology. Troponins to peaked 0.044. CK-MB- peaked 40.5. - See cardio recs above. GERD- chronic, stable. Obesity-chronic, stable. Code- DNR/DNI Dispo- discharge home with Home Health Nurse for PT/OT/LOAN ADVISER. Continue antibiotics Augmentin 875mg twice daily and Doxycycline 100mg twice daily for total 14 days to end Jan 12. Please follow up with your primary doctor, Beba Pavon, in 1 week for below issues. - Can recheck labs including CBC and CPK in 1 week. - Will need to repeat thyroid panel. Recommend referral to [employer] Specialist for further more definitive treatment. - Will need repeat CT Chest in 1 month to assess if antibiotics have treated infection and to see if pulmonary nodules are resolved or changed in size or number. Follow up with your Neurologist in 1 week. Procedures XRay, CTs & MRIs 01/30/17 0957 Date of Service: 01/30/17 MRI STROKE PROTOCOL BRAIN MR ANGIOGRAM: 1. No acute intracranial process. 2. Mild atrophy and chronic microvascular ischemic changes. 3. No areas of hemodynamically significant stenosis, vascular occlusion or aneurysmal dilation within the anterior circulation. 4. No areas of hemodynamically significant stenosis, vascular occlusion or aneurysmal dilation within the posterior circulation. 5. No areas of hemodynamically significant stenosis, vascular occlusion or aneurysmal dilation within the neck vasculature. Origin of vertebral arteries are not well characterized secondary to motion. 01/29- CT Head wo cont- 1. No acute intracranial findings. If there is high clinical suspicion for acute or early subacute infarct, noncontrast MRI of the brain may be helpful. Cardiac Echo Impression The left ventricular cavity is small. The left ventricle is hyperdynamic. The ejection fraction is estimated to be 70-75%. Diastolic function could not be accurately assessed due to tachycardia. The right ventricle grossly appears normal in size with probable normal systolic function. There is mild tricuspid regurgitation. Compared to the prior echo exam, there has been a decrease in TR severity. The right ventricular systolic pressure is estimated at 44 mmHg assuming a right atrial pressure of 3 mm Hg. Compared to the prior echo exam, there has been an mild increase in the severity of pulmonary hypertension. Brief History 61 yo pleasant Female h/o of HTN, Hyperthyroidism, hx of Splenic artery aneurysm , Parkinson's with resting tremor on Sinemet, Tb that was treated in 1970, GERD , Obesity, hx of R Nephrectomy presenting to ED for weakness and increased shaking morning of admission that woke her up. Pt is poor historian, history from family and ED note below. The pt was experiencing increased shaking this morning, severe enough to wake her , in addition to generalized weakness, fever, inability to speak normally and cramping pain, though she denies headache. The pt reports that she just restarted her Metoprolol. Per pt's , the pt has been taking Carbidopa-Levodopa for some time, and had a decreased appetite yesterday. He was not aware of any cough or vomiting or other suggestive symptoms. He notes a male relative as a febrile illness after exposure to a "virus", and the patient was in the same area exposed to dust in the same area. In ED pt received single dose of Carbidopa-Levodopa. Abx- given Ceftriaxone and Azithromycin. UA- suggestive of UTI. Hospital Course 61 yo pleasant Female h/o of HTN, Hyperthyroidism, hx of Splenic artery aneurysm , Parkinson's with resting tremor on Sinemet, Tb that was treated in 1970, GERD , Obesity, hx of R Nephrectomy presenting to ED for weakness and increased shaking morning of admission for severe tremors, Sepsis due to pneumonia and Rhabdomyolysis with CPK of 2787. Rhabdomyolysis- poa, resolved- likely 2/2 to uncontrolled Parkinson's. Initial CPK 2787, trending down 2398->712->216. UA- no blood, rbc. Pt has had dec po intake and likely missed doses. Tremors have been worsening over last day per family. Can recheck labs including CBC and CPK in 1 week when follow up with primary doctor. Parkinson's- chronic, active- Pt on exam has severe resting tremor. Possible may have missed doses per family. Consider seizures, however less likely. - Continued on Sinemet at home dose, checked w/ Neuro Office, Dose is 1.5 QID. - Resume Mm Relaxer, tizanidine. - Take new dose of Sinemet 1.5 tablets four times daily. - Follow up with Dr. Zavaleta is outpatient neurologist. - Social work arranging Home Health nurse. Sepsis- poa, active- source likely PNA. UTI possible however UA- LE/Nit- neg. Bacteria- mod. WBC- 15.2 on admit, downtrending ->9.2. Fever- 38.4. HR- 124. 06/16- CXR- Prominent interstitium and upper lobe scarring unchanged from the prior examination. Possible mild early developing pulmonary edema. 01/30- CXR- suggestive of worsening edema. superimposed atelectasis or pneumonia. - Blood, Sputum cx- ngtd.Strep Pn ag- neg. Respiratory Viral Panel ordered - ED gave Ceftriaxone/Azithromycin. Pt started on Zosyn 01/29. Continue antibiotics Augmentin 875mg twice daily and Doxycycline 100mg twice daily for total 14 days to end February 14. Weakness- poa, resolved- - Unclear etiology. Likely related to above. Pt does appear dehydrated on exam. Difficulty with words per family. 01/29 CT Head- no evidence of CVA. MRI/MRA- no acute process. No significant area of stenosis. - Dr. Zavaleta is pt's outpatient neurologist, discussed with Dr. Levi who is executive personal assistant. Bilateral diffuse small pulmonary nodules- poa, active- seen on CT Chest 01/31 likely due to atypical infection, can't rule out malignancy. Scarring evident b/ l Upper lobes due to past infection. Pt has hx of treated TB which explains scarring. Will need repeat CT Chest in 1 month to assess if antibiotics have treated infection and to see if pulmonary nodules are resolved or changed in size or number. Hyperthroidism- chronic, uncontrolled- pt appears to have been taken of anti- Thyroid medication in past. Thyroid Panel repeated shows very low TSH- of 0.009 and T4- 13.9. This would explain pt's Sinus Tachycardia. Pt does not want to resume Anti-Thyroid meds. Will need to see PCP to repeat Thyroid panel to confirm. Recommend referral to [employer]ist for further more definitive treatment. HTN- poa, active. Pt was initially hypotensive on admit. Likely due to hypovolemia as responded to IVF. -Held Metoprolol, consider restarting at lower dose as BP tolerates, change to short acting for now to titrate. Sinus Tachycardia- poa, active- Cardiology Consulted- Dr. Santos, Rec Echo, trending Trop/CK-MB, Read EKG- says artifact due to shaking. Read as Sinus Tach. Treat infection/hypovolemia and Tachycardia should improve. -Medical Management- ASA, hold off statin given risk of Rhabdomyolysis, Beta Alan if can tolerate due to hypotension. -01/30/2017- Echo- EF 70-75%. LV- hyperdynamic. Mild TR. - Have stopped giving Metoprolol as blood pressure does get very low with it. Suspect treating the thyroid will help sinus tachycardia. PITA- poa, resolved- Scr 2.63 on admit->1.41->0.99 likely prerenal due to dehydration. May be component of Rhabdomyolysis, UA- neg for blood. hx of R Nephrectomy. Avoid Nephrotoxic agents. Continue with IVF, slow IVF due to pulmonary congestion. Elevated Troponin- poa, resolved- Likely demand ischemia due to MSK etiology. Troponins to peaked 0.044. CK-MB- peaked 40.5. - See cardio recs above. GERD- chronic, stable. Obesity-chronic, stable. Code- DNR/DNI Dispo- discharge home with Home Health Nurse for PT/OT/LOAN ADVISER. Continue antibiotics Augmentin 875mg twice daily and Doxycycline 100mg twice daily for total 14 days to end February 14. Have stopped giving Metoprolol as your blood pressure does get very low with it. Can recheck labs including CBC and CPK in 1 week when follow up with primary doctor. Will need repeat CT Chest in 1 month to assess if antibiotics have treated infection and to see if pulmonary nodules are resolved or changed in size or number. You primary doctor can order this at follow up appointment. Determine if need to be on Metoprolol, consider lower dose. Follow up with your Neurologist in 1 week. Exam Vital Signs (Last) Date Time Temp Pulse Resp B/P Pulse Ox O2 Delivery O2 Flow Rate FiO2 02/02/17 09:12 98 02/02/17 08:41 36.7 18 99/65 97 02/02/17 07:57 Room Air Test 01/29/17 04:48 01/29/17 05:06 01/29/17 09:01 01/29/17 13:01 Prothrombin Time 10.9sec (8.1-12.5) Prothromb Time International Ratio 1.02ratio Activated Partial Thromboplast Time 22.5sec (22.8-33.0) Hold Falcon Top Tube Received (Received) Urine Color Dark yellow (YELLOW) Urine Appearance Clear (CLEAR,HAZY) Urine pH 5.5 (5.0-8.0) Urine Specific [place] 1.025 (1.003-1.035) Urine Protein Tracemg/dL (NEG,TRACE) Urine Glucose (UA) Negativemg/dL (NEGATIVE) Urine Ketones Negativemg/dL (NEGATIVE) Urine Occult Blood Negative (NEGATIVE) Urine Nitrite Negative (NEGATIVE) Urine Bilirubin Negative (NEGATIVE) Urine Urobilinogen 4.0mg/dL (NORMAL) Urine Leukocyte Esterase Negative (NEGATIVE) Urine RBC 0-2/hpf (0-2) Urine WBC 6-10/hpf (0-5) Urine Epithelial Cells Few/hpf (NONE-MOD) Urine Crystals None seen (NONE SEEN) Urine Bacteria Moderate/hpf (NONE-FEW) Urine Hyaline Casts 5/20/lpf (NONE) Urine Granular Casts None seen (NONE SEEN) Urine Waxy Casts None seen (NONE SEEN) Urine Red Blood Cell Casts None seen (NONE SEEN) Urine White Blood Cell Casts None seen (NONE SEEN) Urine Mucus Present (None Seen) Urine Trichomonas None seen (NONE SEEN) Urine Yeast None (NONE SEEN) Urinalysis Comment None Urine Culture Reflexed Indicated Urine Legionella pneumophilia Ag Negative (Negative) Ammonia 43ug/dL (18-53) Pro-B-Type Natriuretic Peptide 2332pg/mL (0-287) Test 01/30/17 06:15 01/30/17 08:15 01/31/17 06:33 02/01/17 08:20 Phosphorus Level 3.2mg/dL (2.5-4.9) Magnesium Level 2.0mg/dL (1.6-2.6) Creatine Kinase MB 20.9ng/mL (0.0-5.3) Creatine Kinase MB % 0.9% (0.0-5.0) Troponin T 0.016ug/L (0.0-0.011) Thyroid Stimulating Hormone (TSH) 0.009uIU/mL (0.450-4.500) Free Thyroxine Index 4.9 (1.2-4.9) Thyroxine (T4) 13.9ug/dL (4.5-12.0) Triiodothyronine (T3) Uptake 35% (24-39) Lactic Acid Level 1.5mmol/L (0.4-2.0) Total Bilirubin 0.7mg/dL (0.0-1.2) Aspartate Amino Transf (AST/SGOT) 80U/L (0-50) Alanine Aminotransferase (ALT/SGPT) 35U/L (0-32) Alkaline Phosphatase 50U/L (25-165) Total Protein 5.4g/dL (6.4-8.4) Albumin 2.5g/dL (3.4-5.0) White Blood Count 7.2th/mm3 (3.8-10.1) Red Blood Count 4.19mil/mm3 (3.90-5.20) Hemoglobin 11.8g/dL (12.0-15.6) Hematocrit 35.5% (35.0-46.0) Mean Corpuscular Volume 84.7fL (81-100) Mean Corpuscular Hemoglobin 28.2pg (27.0-35.0) Mean Corpuscular Hemoglobin Concent 33.2% (32.0-37.0) Red Cell Distribution Width 14.5% (12.3-15.4) Platelet Count 197bil/L (150-400) Neutrophils (%) (Auto) 66.3% (40-74) Lymphocytes (%) (Auto) 18.4% (14-46) Monocytes (%) (Auto) 8.3% (4-12) Eosinophils (%) (Auto) 6.1% (0-5) Basophils (%) (Auto) 0.6% (0-3) Sodium Level 141mEq/L (134-144) Potassium Level 4.3mEq/L (3.5-5.2) Chloride Level 108mEq/L (97-108) Carbon Dioxide Level 20mmol/L (18-29) Blood Urea Nitrogen 12mg/dL (8-27) Creatinine 0.66mg/dL (0.57-1.00) Estimat Glomerular Filtration Rate 130mL/min (>59) Glucose Level 99mg/dL (60-99) Calcium Level 8.2mg/dL (8.5-10.1) Total Creatine Kinase 216U/L (21-215) Procalcitonin 0.66ng/mL (0.00-0.08) Microbiology Results 01/29/17- CXR- Prominent interstitium and upper lobe scarring unchanged from the prior examination. Mild early developing pulmonary edema cannot be excluded and clinical correlation recommended. Discharge Medications Discharge Medications Albuterol HFA (Proair HFA) 8.5 Gm Hfa.aer.ad 2 PUFFS INHALATION Q4H (Reported) Amoxicillin/Clav K 875-125 mg (Amoxicillin/Clav K 875-125 mg) 875 Mg Tab 1 TAB PO BID Prescribed by: LAUREN COBB MD Carbidopa/Levodopa 25-100 mg (Carbidopa/Levodopa 25-100 mg) 1 Each Tablet 1.5 TABLET PO QID Prescribed by: LAUREN COBB MD Doxycycline Hyclate (Doxycycline Hyclate) 100 Mg Tablet 100 MG PO BID Prescribed by: LAUREN COBB MD As needed Tizanidine (Tizanidine) 4 Mg Tablet 2 MG PO TID PRN PRN For Spasm Prescribed by: LAUREN COBB MD Miscellaneous Medications Cetirizine HCl (All Day Allergy) 10 Mg Tab.chew 10 MG PO (Reported) Fluticasone Propionate (Allergy Relief) 50 Mcg/Actuation Owen.susp 15.8 ML NS ( Reported) Additional med instructions Continue antibiotics Augmentin 875mg twice daily and Doxycycline 100mg twice daily for total 14 days to end February 14. Have stopped giving Metoprolol as your blood pressure does get very low with it. Followup Plan Disposition: Home. Social work arranging Home Health Nurse. Follow-up plan Please follow up with your primary doctor, Beba Pavno, in 1 week for below issues. - Can recheck labs including CBC and CPK in 1 week. - Will need to repeat thyroid panel. Recommend referral to [employer] Specialist for further more definitive treatment. - Will need repeat CT Chest in 1 month to assess if antibiotics have treated infection and to see if pulmonary nodules are resolved or changed in size or number. - Determine if need to be on Metoprolol, consider lower dose. Follow up with your Neurologist in 1 week. Discharge Diet: No restrictions Discharge Activity: No restrictions Provider: Jaqueline Zavaleta MD Follow-up in: 1 week Time spent Greater than 30 minutes was spent in preparation of discharge with greater than 50% of that time dedicated to patient counseling and coordination of care. Lauren Cobb MD Feb 02, 2017 12:17 50% of that time dedicated to patient counseling and coordination of care. Lauren Cobb MD Feb 02, 2017 12:17
[2017-02-02] MEDS ORDERED: TIZA4TAB4 PO (12:39)
[2017-02-02] MEDS ORDERED: AGM875T PO (12:39)
[2017-02-02] MEDS ORDERED: DOXY100T2 PO (12:39)
--- NOTE | 2017-02-02 12:42 | PCM.DIMED ---
Discharge Instructions Date of Service Feb 02, 2017 Dates of Hospitalization Jan 29, 2017 at 06:13 Discharge Diagnosis Discharge Diagnosis Rhabdomyolysis- poa, resolved- Parkinson's- chronic, active- Sepsis due to Pneumonia , present on admit, active. Weakness- poa, resolved- - Unclear etiology. Likely related to above. Pt does appear dehydrated on exam. Difficulty with words per family. 01/29 CT Head- no evidence of CVA. MRI/MRA- no acute process. No significant area of stenosis. - Dr. Zavaleta is pt's outpatient neurologist, discussed with Dr. Levi who is instructional developer. Bilateral diffuse small pulmonary nodules- poa, active- seen on CT Chest 01/31 likely due to atypical infection, can't rule out malignancy. Scarring evident b/ l Upper lobes due to past infection. Pt has hx of treated TB which explains scarring. Will need repeat CT Chest in 1 month to assess if antibiotics have treated infection and to see if pulmonary nodules are resolved or changed in size or number. Hyperthroidism- chronic, uncontrolled- pt appears to have been taken of anti- Thyroid medication in past. Thyroid Panel repeated shows very low TSH- of 0.009 and T4- 13.9. This would explain pt's Sinus Tachycardia. Pt does not want to resume Anti-Thyroid meds. Will need to see PCP to repeat Thyroid panel to confirm. Recommend referral to Inspector General for further more definitive treatment. HTN- poa, active. Pt was initially hypotensive on admit. Likely due to hypovolemia as responded to IVF. -Held Metoprolol, consider restarting at lower dose as BP tolerates, change to short acting for now to titrate. Sinus Tachycardia- poa, active- Cardiology Consulted- Dr. Santos, Rec Echo, trending Trop/CK-MB, Read EKG- says artifact due to shaking. Read as Sinus Tach. Treat infection/hypovolemia and Tachycardia should improve. -Medical Management- ASA, hold off statin given risk of Rhabdomyolysis, Beta Alan if can tolerate due to hypotension. -01/30/2017- Echo- EF 70-75%. LV- hyperdynamic. Mild TR. PITA- poa, resolved- Scr 2.63 on admit->1.41->0.99 likely prerenal due to dehydration. May be component of Rhabdomyolysis, UA- neg for blood. hx of R Nephrectomy. Avoid Nephrotoxic agents. Continue with IVF, slow IVF due to pulmonary congestion. Elevated Troponin- poa, resolved- Likely demand ischemia due to MSK etiology. Troponins to peaked 0.044. CK-MB- peaked 40.5. - See cardio recs above. GERD- chronic, stable. Obesity-chronic, stable. Code- DNR/DNI Dispo- discharge home with Home Health Nurse for PT/OT/FOOD AND BEVERAGE SERVER. Continue antibiotics Augmentin 875mg twice daily and Doxycycline 100mg twice daily for total 14 days to end Jan 12. Please follow up with your primary doctor, Beba Pavon, in 1 week for below issues. - Can recheck labs including CBC and CPK in 1 week. - Will need to repeat thyroid panel. Recommend referral to Inspector General for further more definitive treatment. - Will need repeat CT Chest in 1 month to assess if antibiotics have treated infection and to see if pulmonary nodules are resolved or changed in size or number. Follow up with your Neurologist in 1 week. Medication Instructions Additional med instructions Continue antibiotics Augmentin 875mg twice daily and Doxycycline 100mg twice daily for total 14 days to end February 14. Have stopped giving Metoprolol as your blood pressure does get very low with it. Diet Discharge Diet: No restrictions Activity Discharge Activity: No restrictions Patient Instructions Follow-up plan Please follow up with your primary doctor, Beba Pavon, in 1 week for below issues. - Can recheck labs including CBC and CPK in 1 week. - Will need to repeat thyroid panel. Recommend referral to Inspector General for further more definitive treatment. - Will need repeat CT Chest in 1 month to assess if antibiotics have treated infection and to see if pulmonary nodules are resolved or changed in size or number. - Determine if need to be on Metoprolol, consider lower dose. Follow up with your Neurologist in 1 week. Provider: Jaqueline Zavaleta MD Follow-up in: 1 week Ash Noyola MD Feb 02, 2017 12:42
[2017-02-02 13:01] VITALS: BP 114/72; PULSE 99; RESP 18; O2SAT 99
== END 2017-02-02 15:30 | disposition home health service (06) | DRG 871 ==
LOC: SED 04:16 → OSC 06:13
PROVIDERS: ADMIT Hospitalist; ATTEND Internal Medicine
DX: A41.9 Sepsis, unspecified organism (principal); J18.9 Pneumonia, unspecified organism; N17.9 Acute kidney failure, unspecified; I24.8 Other forms of acute ischemic heart disease; G20 Parkinson's disease; M62.82 Rhabdomyolysis; E05.90 Thyrotoxicosis, unspecified without thyrotoxic crisis or storm; I10 Essential (primary) hypertension; K21.9 Gastro-esophageal reflux disease without esophagitis; Z66 Do not resuscitate; F17.210 Nicotine dependence, cigarettes, uncomplicated; Z90.5 Acquired absence of kidney; E66.9 Obesity, unspecified; R00.0 Tachycardia, unspecified